=== PATIENT | male | born 1975 | race Caucasian/White ===

== ENCOUNTER 2020-06-27 18:41 | Emergency (ER) | payer OTHER, SELFPAY ==
[2020-06-27] VITALS (10 sets, daily range): BP systolic 120–168; BP diastolic 60–98; PULSE 83–90; RESP 14–18; TEMP 36.3–37.4; O2SAT 92–98; BMI 38.3
--- NOTE | 2020-06-27 19:31 | XRR_ITS ---
PROCEDURE INFORMATION: Exam: XR Chest, 1 View Exam date and time: 06/27/2020 7:50 PM Age: 44 years old Clinical indication: Cough and fever and shortness of breath; Prior surgery; Patient HX: Stents; Additional info: Chest pain; Fevers, cough, shortness of breath, aches TECHNIQUE: Imaging protocol: XR of the chest Views: 1 view. COMPARISON: CR Chest 1 [place] [id number] 02/28/2017 9:57 PM FINDINGS: Lungs: Unremarkable. No consolidation. Pleural space: Unremarkable. No pleural effusion. No pneumothorax. Heart/Mediastinum: Unremarkable. No cardiomegaly. Bones/joints: Unremarkable. XR/XR chest 1V portable [id number] IMPRESSION: No acute findings.
--- NOTE | 2020-06-27 19:33 | ECG_ITS ---
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 Measurements Intervals [place] Rate: 85 P: 34 [place]: 187 QRS: 19 QRSD: 113 T: 76 QT: 367 QTc: 438 Interpretive Statements SINUS RHYTHM POSSIBLE LEFT ATRIAL ENLARGEMENT [-0.1mV P WAVE IN V1/V2] SEPTAL MYOCARDIAL INFARCTION , OF INDETERMINATE AGE [40+ ms Q WAVE IN V1/V2] Compared to ECG 03/01/2017 04:55:59 No significant changes Electronically Signed On 06-28-2020 17:54:09 [employer]BILE HOME [employer] UTILITY WORKER by Cris Guevara M.D. [id number]
--- NOTE | 2020-06-27 19:46 | ED_ITS ---
HPI - Fever General: Chief Complaint: Fever Stated Complaint: low fever, cough, chest pain Time Seen by Provider: 06/27/20 19:25 History of Present Illness: HPI Narrative: The patient is a 44-year-old male who comes to the ER complaining of a couple days of low-grade fever, muscle aches, fatigue, productive cough. No known Covid exposure. He also has a severe history of cardiac disease with 21 stents placed. Also a couple strokes. He says his last stenting procedure was 4 years ago. He says over the past few days he has also had left-sided chest pressure and heaviness similar to his previous [place]. There is no pressure in the ER at this time. Also h/o diabetes MD elicited complaint: fever, malaise and weakness Pertinent past history: diabetes Associated symptoms: Reports chills, cough, headache(s), myalgias and short of breath; Deny abdominal pain, flank pain, chest pain, diarrhea, extremity pain or nasal congestion Review of Systems General: Reports: 10 or more systems reviewed and unremarkable except in HPI and below Const: Reports: fever(s), chills, body aches and fatigue Eyes: Denies: change in vision, blurry vision or eye redness ENMT: Denies: throat pain, swelling of lips/tongue, ear or mastoid pain or nasal congestion Card: Denies: chest pain Resp: Reports: dyspnea and productive cough GI: Denies: abdominal pain, diarrhea or GI cramping : Denies: flank pain, urinary frequency or urinary urgency Musc: Denies: neck pain, back pain, extremity pain, joint pain, joint redness, limited range of motion or muscle weakness Skin/Breast: Denies: rash, pruritus, erythema, skin pain or skin tenderness Neuro: Reports: headache(s) Psych: Denies: anxiety or depression Endo: Denies: polyuria All/Imm: Denies: urticaria, throat swelling or tongue swelling Physical Exam Const: COMMON NORMALS: no acute distress, average body habitus, patient oriented x3, no limitations, healthy appearing, alert and well nourished GENERAL APPEARANCE: cooperative, comfortable, well kempt and well developed ORIENTATION/CONSCIOUSNESS: Yes awake, Yes oriented to person, Yes oriented to place and Yes oriented to time HENMT: COMMON NORMALS: normocephalic, external ears normal and Normal external nose present HEAD & SCALP: normal to inspection and normocephalic NOSE: Normal external nose present EXTERNAL EAR: Yes external ears normal MOUTH: Normal oral and palatal mucosa present THROAT: posterior oropharynx normal Eye: COMMON NORMALS: Equal, round and reactive pupils present and EOMs intact bilaterally GENERAL EYE: appearance normal, both eyes and all related structures PUPIL: Yes Equal, round and reactive pupils present Neck/C-Spine: COMMON NORMALS: full ROM, no lymphadenopathy, no meningeal signs and no JVD GENERAL: Yes normal visual inspection Lymph: LYMPHATIC: no lymphadenopathy noted Chest: COMMONS NORMALS: normal inspection of the chest and normal palpation of entire chest wall Resp: COMMON NORMALS: normal respiratory effort, No retractions, No use of accessory muscles, clear to auscultation bilaterally and percussion normal EFFORT & INSPECTION: Yes able to speak in complete sentences AUSCULTATION: clear to auscultation bilaterally PERCUSSION: percussion normal Cardio: COMMON NORMALS: no JVD, regular rate, regular rhythm, S1 normal heart sound present, S2 normal heart sound present and Peripheral pulses 2+ throughout RATE: regular rate RHYTHM: regular rhythm HEART SOUNDS: S1 normal heart sound present and S2 normal heart sound present PERIPHERAL PULSES: Peripheral pulses 2+ throughout GI: COMMON NORMALS: Normal to inspection, nondistended, normoactive bowel sounds present, Soft to palpation, non-tender and no masses INSPECTION: Yes normal to inspection PALPATION: Yes Soft to palpation : COMMON NORMALS: Yes no CVA tenderness BLADDER/KIDNEY EXAM: Yes no CVA tenderness Back/Pelvis: COMMON NORMALS: no CVA tenderness, thoracic and lumbar spine normal to inspection, no thoracic nor lumbar tenderness and thoraco-lumbar ROM normal Extremity: COMMON NORMALS: normal to inspection, full ROM, capillary refill normal, no joint enlargement and no pedal edema GENERAL: Yes normal exam except as noted Neuro: COMMON NORMALS: patient oriented x3, CN's II-XII intact bilaterally, moves all extremities, no focal motor deficits, no sensory deficits noted and gait normal SENSORIUM/ORIENTATION: Yes alert, Yes oriented to person, Yes oriented to place and Yes oriented to time MENINGEAL SIGNS: Yes no meningeal signs Psych: COMMON NORMALS: mental status grossly normal, Normal thought process present, cooperative, normal affect and speech normal APPEARANCE: Yes well kempt ATTITUDE: Yes calm SPEECH: Yes normal speech THOUGHT PROCESS: Normal thought process present Skin: COMMON NORMALS: no rashes or lesions noted GENERAL SKIN EXAM: no rashes or lesions noted Course Vital Signs: Vital signs: Vital Signs Temperature 98.5 F 06/28/20 02:28 Pulse Rate 87 06/28/20 02:28 Respiratory Rate 15 06/28/20 02:28 Blood Pressure 147/84 06/28/20 02:28 Pulse Oximetry 95 06/28/20 02:28 MDM - Fever MDM Narrative: Medical decision making narrative: The patient came in complaining of Covid symptoms for the past couple days and swabbed positive in the ER. He also came in complaining of chest pain with coughing which is diffuse in his anterior chest wall and tender to palpation. Of note he does have 21 cardiac stents and has not had a cath for 4 years. His initial and 2- hour troponin are negative and will wait for the sixth to discharge him. His body mass index is above 35 and he has cardiac disease which qualifies him for a BAM infusion. He consented and will give it to him here while he is awaiting his 6-hour troponin. Lab Data: Labs: Lab Results 06/27/20 06/27/20 06/27/20 Range/Units 19:48 19:48 19:48 WBC 6.2 (4.0-10.0) 10^3/ uL RBC 5.21 (4.1-5.3) 10^6/u L Hgb 15.0 (11.7-16.6) g/dL Hct 44.1 (42.0-52.0) % MCV 84.6 (80-94) fL MCH 28.8 (28.0-34.0) pg MCHC 34.0 (30.0-36.0) g/dL RDW 11.5 L (12.1-15.1) % Plt Count 173 (130-400) 10^3/c mm MPV 10.6 H (7.4-10.4) fL Neut % (Auto) 50.6 % Lymph % (Auto) 29.4 % Brewster % (Auto) 18.7 % Eos % (Auto) 0.5 % Baso % (Auto) 0.5 % Neut # (Auto) 3.11 (1.8-7.7) 10^3/u L Lymph # (Auto) 1.8 (0.8-4.8) 10^3/u L Brewster # (Auto) 1.2 H (0.2-0.9) 10^3/u L Eos # (Auto) 0.0 (0.0-0.8) 10^3/u L Baso # (Auto) 0.0 (0.0-0.1) 10^3/u L Nucleated RBC % (a uto) 0 % Nucleated RBCs # 0.0 /100WBC D-Dimer 0.48 (0-0.59) ug/mIFE U Sodium 130 L (136-145) mmol/L Potassium 4.5 (3.5-5.1) mmol/L Chloride 91 L (98-107) mmol/L Carbon Dioxide 28 (22-29) mmol/L Anion Gap 15.5 (5-19) BUN 18 (6-20) mg/dL Creatinine 1.1 (0.7-1.2) mg/dL GFR Calculation 72.1 L (90-130) mL/min Glucose 378 H (65-115) mg/dL Calculated Osmolal ity 287 (285-295) mOsm/k g Lactate (0.5-2.2) mmol/L Calcium 9.5 (8.5-10.5) mg/dL Total Bilirubin 0.7 (0.15-1.2) mg/dL AST 74 H (0-40) U/L ALT 111 H (0-41) U/L Alkaline Phosphata se 73 (40-130) IU/L Troponin T Baselin e (0-15) ng/L Troponin T 120 Min [place] (0-15) ng/L Delta Troponin T (0-10) ABS# Troponin T Hi Sens 6Hr (0-15) ng/L Troponin T Hi Sens 6Hr Delta (0-12) ng/L NT-Pro-B Natriuret Pep 21 (0-125) pg/mL Total Protein 7.0 (6.6-8.7) g/dL Albumin 4.0 (3.5-5.2) g/dL Globulin 3.0 (1.3-4.6) g/dL Urine Color (Yellow) Urine Appearance (CLEAR) Urine pH (5-7) Ur Specific Gravit y (1.005-1.030) Urine Protein (Negative) Urine Glucose (UA) (Normal) Urine Ketones (Negative) Urine Blood (Negative) Urine Nitrate (Negative) Urine Bilirubin (Negative) Urine Urobilinogen (Negative) mg/dL Ur Leukocyte Ciara ase (Negative) Urine RBC (0-2) /hpf Urine WBC (0-5) /hpf Ur Squamous Epith Cells (0-5) /hpf Amorphous Sediment Urine Bacteria (NONE) /hpf Hepatitis A IgM Ab (Nonreactive) Hep Bs Antigen (Nonreactive) Hep B Core IgM Ab (Nonreactive) Hepatitis C Antibo dy (Nonreactive) Influenza Type A A g (Negative) Influenza Type B A g (Negative) SARS-CoV-2 Ag (Rap id) (Negative) 06/27/20 06/27/20 06/27/20 Range/Units 19:48 19:48 19:48 WBC (4.0-10.0) 10^3/ uL RBC (4.1-5.3) 10^6/u L Hgb (11.7-16.6) g/dL Hct (42.0-52.0) % MCV (80-94) fL MCH (28.0-34.0) pg MCHC (30.0-36.0) g/dL RDW (12.1-15.1) % Plt Count (130-400) 10^3/c mm MPV (7.4-10.4) fL Neut % (Auto) % Lymph % (Auto) % Brewster % (Auto) % Eos % (Auto) % Baso % (Auto) % Neut # (Auto) (1.8-7.7) 10^3/u L Lymph # (Auto) (0.8-4.8) 10^3/u L Brewster # (Auto) (0.2-0.9) 10^3/u L Eos # (Auto) (0.0-0.8) 10^3/u L Baso # (Auto) (0.0-0.1) 10^3/u L Nucleated RBC % (a uto) % Nucleated RBCs # /100WBC D-Dimer (0-0.59) ug/mIFE U Sodium (136-145) mmol/L Potassium (3.5-5.1) mmol/L Chloride (98-107) mmol/L Carbon Dioxide (22-29) mmol/L Anion Gap (5-19) BUN (6-20) mg/dL Creatinine (0.7-1.2) mg/dL GFR Calculation (90-130) mL/min Glucose (65-115) mg/dL Calculated Osmolal ity (285-295) mOsm/k g Lactate 1.8 (0.5-2.2) mmol/L Calcium (8.5-10.5) mg/dL Total Bilirubin (0.15-1.2) mg/dL AST (0-40) U/L ALT (0-41) U/L Alkaline Phosphata se (40-130) IU/L Troponin T Baselin e 24 H (0-15) ng/L Troponin T 120 Min [place] (0-15) ng/L Delta Troponin T (0-10) ABS# Troponin T Hi Sens 6Hr (0-15) ng/L Troponin T Hi Sens 6Hr Delta (0-12) ng/L NT-Pro-B Natriuret Pep (0-125) pg/mL Total Protein (6.6-8.7) g/dL Albumin (3.5-5.2) g/dL Globulin (1.3-4.6) g/dL Urine Color (Yellow) Urine Appearance (CLEAR) Urine pH (5-7) Ur Specific Gravit y (1.005-1.030) Urine Protein (Negative) Urine Glucose (UA) (Normal) Urine Ketones (Negative) Urine Blood (Negative) Urine Nitrate (Negative) Urine Bilirubin (Negative) Urine Urobilinogen (Negative) mg/dL Ur Leukocyte Ciara ase (Negative) Urine RBC (0-2) /hpf Urine WBC (0-5) /hpf Ur Squamous Epith Cells (0-5) /hpf Amorphous Sediment Urine Bacteria (NONE) /hpf Hepatitis A IgM Ab Non-reactive (Nonreactive) Hep Bs Antigen Non-reactive (Nonreactive) Hep B Core IgM Ab Non-reactive (Nonreactive) Hepatitis C Antibo dy Non-reactive (Nonreactive) Influenza Type A A g (Negative) Influenza Type B A g (Negative) SARS-CoV-2 Ag (Rap id) (Negative) 06/27/20 06/27/20 06/27/20 Range/Units 19:53 19:53 20:56 WBC (4.0-10.0) 10^3/ uL RBC (4.1-5.3) 10^6/u L Hgb (11.7-16.6) g/dL Hct (42.0-52.0) % MCV (80-94) fL MCH (28.0-34.0) pg MCHC (30.0-36.0) g/dL RDW (12.1-15.1) % Plt Count (130-400) 10^3/c mm MPV (7.4-10.4) fL Neut % (Auto) % Lymph % (Auto) % Brewster % (Auto) % Eos % (Auto) % Baso % (Auto) % Neut # (Auto) (1.8-7.7) 10^3/u L Lymph # (Auto) (0.8-4.8) 10^3/u L Brewster # (Auto) (0.2-0.9) 10^3/u L Eos # (Auto) (0.0-0.8) 10^3/u L Baso # (Auto) (0.0-0.1) 10^3/u L Nucleated RBC % (a uto) % Nucleated RBCs # /100WBC D-Dimer (0-0.59) ug/mIFE U Sodium (136-145) mmol/L Potassium (3.5-5.1) mmol/L Chloride (98-107) mmol/L Carbon Dioxide (22-29) mmol/L Anion Gap (5-19) BUN (6-20) mg/dL Creatinine (0.7-1.2) mg/dL GFR Calculation (90-130) mL/min Glucose (65-115) mg/dL Calculated Osmolal ity (285-295) mOsm/k g Lactate (0.5-2.2) mmol/L Calcium (8.5-10.5) mg/dL Total Bilirubin (0.15-1.2) mg/dL AST (0-40) U/L ALT (0-41) U/L Alkaline Phosphata se (40-130) IU/L Troponin T Baselin e (0-15) ng/L Troponin T 120 Min [place] (0-15) ng/L Delta Troponin T (0-10) ABS# Troponin T Hi Sens 6Hr (0-15) ng/L Troponin T Hi Sens 6Hr Delta (0-12) ng/L NT-Pro-B Natriuret Pep (0-125) pg/mL Total Protein (6.6-8.7) g/dL Albumin (3.5-5.2) g/dL Globulin (1.3-4.6) g/dL Urine Color Yellow (Yellow) Urine Appearance Clear (CLEAR) Urine pH 5 (5-7) Ur Specific Gravit y 1.015 (1.005-1.030) Urine Protein Neg (Negative) Urine Glucose (UA) 4+ H (Normal) Urine Ketones Negative (Negative) Urine Blood 2+ H (Negative) Urine Nitrate Negative (Negative) Urine Bilirubin Neg (Negative) Urine Urobilinogen Norm (Negative) mg/dL Ur Leukocyte Ciara ase Negative (Negative) Urine RBC 0-4 H (0-2) /hpf Urine WBC 0-4 H (0-5) /hpf Ur Squamous Epith Cells 0-4 H (0-5) /hpf Amorphous Sediment Not Reportable Urine Bacteria Trace (NONE) /hpf Hepatitis A IgM Ab (Nonreactive) Hep Bs Antigen (Nonreactive) Hep B Core IgM Ab (Nonreactive) Hepatitis C Antibo dy (Nonreactive) Influenza Type A A g Negative (Negative) Influenza Type B A g Negative (Negative) SARS-CoV-2 Ag (Rap id) Positive H (Negative) 06/27/20 06/28/20 Range/Units 21:40 01:22 WBC (4.0-10.0) 10^3/ uL RBC (4.1-5.3) 10^6/u L Hgb (11.7-16.6) g/dL Hct (42.0-52.0) % MCV (80-94) fL MCH (28.0-34.0) pg MCHC (30.0-36.0) g/dL RDW (12.1-15.1) % Plt Count (130-400) 10^3/c mm MPV (7.4-10.4) fL Neut % (Auto) % Lymph % (Auto) % Brewster % (Auto) % Eos % (Auto) % Baso % (Auto) % Neut # (Auto) (1.8-7.7) 10^3/u L Lymph # (Auto) (0.8-4.8) 10^3/u L Brewster # (Auto) (0.2-0.9) 10^3/u L Eos # (Auto) (0.0-0.8) 10^3/u L Baso # (Auto) (0.0-0.1) 10^3/u L Nucleated RBC % (a uto) % Nucleated RBCs # /100WBC D-Dimer (0-0.59) ug/mIFE U Sodium (136-145) mmol/L Potassium (3.5-5.1) mmol/L Chloride (98-107) mmol/L Carbon Dioxide (22-29) mmol/L Anion Gap (5-19) BUN (6-20) mg/dL Creatinine (0.7-1.2) mg/dL GFR Calculation (90-130) mL/min Glucose (65-115) mg/dL Calculated Osmolal ity (285-295) mOsm/k g Lactate (0.5-2.2) mmol/L Calcium (8.5-10.5) mg/dL Total Bilirubin (0.15-1.2) mg/dL AST (0-40) U/L ALT (0-41) U/L Alkaline Phosphata se (40-130) IU/L Troponin T Baselin e (0-15) ng/L Troponin T 120 Min [place] 21.00 H (0-15) ng/L Delta Troponin T -3.00 L (0-10) ABS# Troponin T Hi Sens 6Hr 17.68 H (0-15) ng/L Troponin T Hi Sens 6Hr Delta -6.32 L (0-12) ng/L NT-Pro-B Natriuret Pep (0-125) pg/mL Total Protein (6.6-8.7) g/dL Albumin (3.5-5.2) g/dL Globulin (1.3-4.6) g/dL Urine Color (Yellow) Urine Appearance (CLEAR) Urine pH (5-7) Ur Specific Gravit y (1.005-1.030) Urine Protein (Negative) Urine Glucose (UA) (Normal) Urine Ketones (Negative) Urine Blood (Negative) Urine Nitrate (Negative) Urine Bilirubin (Negative) Urine Urobilinogen (Negative) mg/dL Ur Leukocyte Ciara ase (Negative) Urine RBC (0-2) /hpf Urine WBC (0-5) /hpf Ur Squamous Epith Cells (0-5) /hpf Amorphous Sediment Urine Bacteria (NONE) /hpf Hepatitis A IgM Ab (Nonreactive) Hep Bs Antigen (Nonreactive) Hep B Core IgM Ab (Nonreactive) Hepatitis C Antibo dy (Nonreactive) Influenza Type A A g (Negative) Influenza Type B A g (Negative) SARS-CoV-2 Ag (Rap id) (Negative) Discharge Plan Discharge Patient Disposition: Home Clinical Impression: COVID-19 Condition: Stable Prescriptions: New Medrol (Leonard) 4 mg tablets,dose pack See Rx Instructions .ROUTE .COMPLEX Qty: 21 RF: 0 azithromycin 250 mg tablet 250 mg PO DAILY 4 Days Qty: 4 RF: 0 No Action citalopram 40 mg Tablet 40 mg PO BID@1100,2300 RF: 0 lisinopril 20 mg Tablet 40 mg PO DAILY@1100 RF: 0 glipizide 10 mg Tablet 10 mg PO TID@1100,1700,2300 RF: 0 amlodipine 5 mg Tablet 2.5 mg PO BID@1100,2300 RF: 0 Aspir-81 81 mg Tablet,Delayed Release (Dr/Ec) 81 mg PO DAILY@1100 RF: 0 metformin 1,000 mg Tablet 1,000 mg PO BID@1100,2300 RF: 0 metoprolol tartrate 50 mg Tablet 50 mg PO BID@1100,2300 RF: 0 hydrochlorothiazide 25 mg Tablet 25 mg PO DAILY@1100 RF: 0 zolpidem 10 mg Tablet 10 mg PO BEDTIME@2300 RF: 0 Discharge Orders: Discharge ED (Routine); Ordered 06/27/20 Ordered By: Epifanio Seymour Discharge Diet: Advance as tolerated Discharge Activity: Resume usual activity Patient Instructions: Upper Respiratory Infection (ED) Activity Restrictions/Additional Instructions: You have swabbed positive for COVID-19. Please take the steroids and antibiotics at home as directed and follow-up with your primary care physician in a couple days to monitor improvement. Return to the ER with any worsening symptoms or w orsening chest pain. I have placed a case management referral to get you a follow-up with the vegetable vendor as you are likely in need of a stress echocardiogram. Please follow-up with them next week and return to the ER with any worsening chest pain or other concerning symptoms Coding Level of Care Code ED Chemical Plant Operator Supervisor for Janell Fwd Exam Comprehensive
[2020-06-27 20:08] LABS: Basophils % 0.5 %; Eosinophils % 0.5 %; Hematocrit 44.1 % (42.0-52.0); Lymphocytes # 1.8 10^3/uL (0.8-4.8); Lymphocytes % 29.4 %; Mean Corpuscular Hemoglobin 28.8 pg (28.0-34.0); Mean Corpuscular Volume 84.6 fL (80-94); Mean Platelet Volume 10.6 fL (7.4-10.4); Monocytes # 1.2 10^3/uL (0.2-0.9); Monocytes % 18.7 %; Neutrophils # 3.11 10^3/uL (1.8-7.7); Neutrophils % 50.6 %; Nucleated Red Blood Cells % 0 %; Platelet Count 173 10^3/cmm (130-400); Red Blood Count 5.21 10^6/uL (4.1-5.3); Red Cell Distribution Width 11.5 % (12.1-15.1); White Blood Count 6.2 10^3/uL (4.0-10.0)
[2020-06-27 20:20] LABS: Lactate (Lactic Acid level) 1.8 mmol/L (0.5-2.2)
[2020-06-27 20:23] LABS: Troponin(5th) Baseline 24 ng/L (0-15)
[2020-06-27 20:24] LABS: D Dimer 0.48 ug/mIFEU (0-0.59)
[2020-06-27 20:30] LABS: Influenza A by IFA Negative (Negative); Influenza B by IFA Negative (Negative); SARS Covid-2 Antigen Positive (Negative)
[2020-06-27 20:31] LABS: Alanine Aminotransferase 111 U/L (0-41); Alkaline Phosphatase 73 IU/L (40-130); Anion Gap 15.5 (5-19); Aspartate Amino Transferase 74 U/L (0-40); Blood Urea Nitrogen 18 mg/dL (6-20); Calcium 9.5 mg/dL (8.5-10.5); Carbon Dioxide 28 mmol/L (22-29); Chloride 91 mmol/L (98-107); Creatinine Clr Calc Pharmacy 112.8418; Glomerular Filtration Rate 72.1 mL/min (90-130); Glucose 378 mg/dL (65-115); NT Pro B Type Natriuretic Pept 21 pg/mL (0-125); Osmolality Calculated 287 mOsm/kg (285-295); Potassium 4.5 mmol/L (3.5-5.1); Sodium 130 mmol/L (136-145); Total Bilirubin 0.7 mg/dL (0.15-1.2)
[2020-06-27 21:24] LABS: Add Urine Microscopic? YES; Bilirubin Urine Neg (Negative); Blood Urine 2+ (Negative); Glucose Urine UA 4+ (Normal); Ketones Urine Negative (Negative); Leukocyte Esterase Urine Negative (Negative); Nitrate Urine Negative (Negative); Protein Urine Neg (Negative); Specific Gravity, Urine 1.015 (1.005-1.030); Urine Appearance Clear (CLEAR); Urine Color Yellow (Yellow); Urobilinogen Urine Norm (Negative); pH Urine 5 (5-7)
[2020-06-27 21:25] LABS: Add Urine Culture? No; Bacteria Urine TRACE /hpf; RBC Urine 0-4 /hpf (0-2); Squamous Epithelial Cell Urine 0-4 /hpf (0-5); WBC Urine 0-4 /hpf (0-5)
--- NOTE | 2020-06-27 21:33 | ECG_ITS ---
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 Measurements Intervals [place] Rate: 85 P: 20 CT: 194 QRS: -16 QRSD: 112 T: 72 QT: 356 QTc: 424 Interpretive Statements SINUS RHYTHM POSSIBLE LEFT ATRIAL ENLARGEMENT [-0.1mV P WAVE IN V1/V2] ANTEROSEPTAL MYOCARDIAL INFARCTION , OF INDETERMINATE AGE [40+ ms Q WAVE IN V1-V4] INTERPRETATION BASED ON A DEFAULT AGE OF 40 YEARS Compared to ECG 06/27/2020 19:34:03 No significant changes Electronically Signed On 06-28-2020 18:03:42 MOHEL by Cris Guevara M.D. [id number] f
[2020-06-27 22:06] LABS: Hepatitis A Antibody IgM Non-Reactive (Nonreactive); Hepatitis B Core IgM Non-Reactive (Nonreactive); Hepatitis B Surface Antigen Non-Reactive (Nonreactive); Hepatitis C Virus Antibody Non-Reactive (Nonreactive)
[2020-06-27] MEDS: dexamethasone 4 mg/mL INJ 10 MG IVP (23:34)
[2020-06-27] MEDS: azithromycin 250 mg Tablet 500 MG PO (23:34)
[2020-06-28] VITALS: BP 143/87; PULSE 87; RESP 19; O2SAT 92
[2020-06-28 01:00] VITALS: BP 129/84; PULSE 88; RESP 16; O2SAT 93
[2020-06-28 01:52] LABS: Troponin 5 6HR 17.68 ng/L (0-15)
[2020-06-28 02:07] LABS: Troponin 5 6HR Delta -6.32 ng/L (0-12)
[2020-06-28 02:28] VITALS: BP 147/84; PULSE 87; RESP 15; TEMP 36.9; O2SAT 95
--- NOTE | 2020-06-30 12:02 | DCPLANNER ---
Addendum entered by Roxi Grgeg 07/08/20 08:13: box office manager called patient on 07.01.20 and 07.08.20 at phone number [phone], unable to reach patient, left voicemail for patient both time. box office manager will send letter to patient regarding appointment information. Original Note: box office manager had message to schedule a follow up appointment for patient with heart care. box office manager called [facility], spoke with Carmel a follow up appointment was scheduled for , August 07, 2020 at 2:[address] Goldstein. box office manager called [phone], unable to speak with patient at this time, a voicemail was left for patient to return dependency case manager phone call.
--- NOTE | 2020-09-10 11:41 | DCPLANNER ---
Patient had a follow up appointment scheduled for 08.07.[address] Goldstein at [facility] - patient did not attend appointment.
== END 2020-06-28 02:28 | disposition home or self-care (01) ==
PROVIDERS: Emergency Provider Family Medicine
DX: U07.1 COVID-19 (principal); Z79.82 Long term (current) use of aspirin
CPT/HCPCS: 12345; 71045; 80053; 80074; 81001; 83605; 83880; 84484; 85025; 85378; 87426; 87804; 93005; 96365; 96375; 99283; 99284; J1100; J7050; Q0144

== ENCOUNTER → 2021-02-09 17:14 | Outpatient (BNVA) | payer OTHER, SELFPAY | PROVIDERS: PCP Family Medicine; Visit Provider Family Medicine | DX: I10 Essential (primary) hypertension (principal); E11.8 Type 2 diabetes mellitus with unspecified complications; E11.65 Type 2 diabetes mellitus with hyperglycemia; E66.9 Obesity, unspecified; R06.83 Snoring; I25.10 Atherosclerotic heart disease of native coronary artery without angina pectoris | CPT/HCPCS: 80053; 80061; 83036; 83721; 84443; 85025 ==

== ENCOUNTER 2021-02-17 20:00 | Outpatient (CLI) | payer OTHER, SELFPAY | END 2021-02-17 20:01 | disposition home or self-care (01) | LOC: SLEEP 02-18 09:03 | PROVIDERS: PCP Family Medicine; Visit Provider Family Medicine | DX: G47.30 Sleep apnea, unspecified (principal); I10 Essential (primary) hypertension; E11.65 Type 2 diabetes mellitus with hyperglycemia; I25.10 Atherosclerotic heart disease of native coronary artery without angina pectoris; R06.83 Snoring; E66.9 Obesity, unspecified | CPT/HCPCS: 95810 ==

== ENCOUNTER → 2021-08-04 15:21 | Outpatient (BNVA) | payer OTHER, SELFPAY | PROVIDERS: PCP Family Medicine; Visit Provider Family Medicine | DX: J30.9 Allergic rhinitis, unspecified (principal); E11.65 Type 2 diabetes mellitus with hyperglycemia; E11.8 Type 2 diabetes mellitus with unspecified complications; E78.2 Mixed hyperlipidemia; I10 Essential (primary) hypertension; I25.10 Atherosclerotic heart disease of native coronary artery without angina pectoris; R53.83 Other fatigue | CPT/HCPCS: 80048; 80061; 83036; 83721; 84443 ==

== ENCOUNTER → 2021-10-28 14:57 | Outpatient (BNVA) | payer OTHER, SELFPAY | PROVIDERS: PCP Family Medicine; Visit Provider Family Medicine | DX: E11.621 Type 2 diabetes mellitus with foot ulcer (principal); L97.509 Non-pressure chronic ulcer of other part of unspecified foot with unspecified severity; M86.9 Osteomyelitis, unspecified; E11.8 Type 2 diabetes mellitus with unspecified complications; E11.65 Type 2 diabetes mellitus with hyperglycemia | CPT/HCPCS: 73620; 80053; 83036; 85025; 86140; 87070; 87075; 87077; 87184; 87205 ==

== ENCOUNTER 2021-11-05 14:11 | Outpatient (CLI) | payer OTHER, SELFPAY | END 2021-11-05 14:12 | disposition home or self-care (01) | LOC: SPT 14:27 | PROVIDERS: PCP Family Medicine; Visit Provider Nurse Practitioner Family | DX: Z46.89 Encounter for fitting and adjustment of other specified devices (principal); R26.89 Other abnormalities of gait and mobility | CPT/HCPCS: 97760 ==

== ENCOUNTER 2021-11-19 13:51 | Outpatient (CLI) | payer OTHER, SELFPAY ==
[2021-11-19 15:12] LABS: Basophils # 0.1 10^3/uL (0.0-0.1); Basophils % 0.7 %; Eosinophils # 0.3 10^3/uL (0.0-0.8); Eosinophils % 2.6 %; Hematocrit 39.7 % (42.0-52.0); Hemoglobin 13.6 g/dL (11.7-16.6); Lymphocytes # 3.7 10^3/uL (0.8-4.8); Lymphocytes % 38.3 %; Mean Corpuscular HGB Conc 34.3 g/dL (30.0-36.0); Mean Corpuscular Hemoglobin 28.8 pg (28.0-34.0); Mean Corpuscular Volume 83.9 fl (80-94); Mean Platelet Volume 11.4 fL (7.4-10.4); Monocytes % 10.3 %; Neutrophils # 4.59 10^3/uL (1.8-7.7); Neutrophils % 47.6 %; Nucleated Red Blood Cells % 0.2 %; Platelet Count 121 10^3/cmm (130-400); Red Blood Count 4.73 10^6/uL (4.1-5.3); Red Cell Distribution Width 11.9 % (12.1-15.1); White Blood Count 9.6 10^3/uL (4.0-10.0)
[2021-11-19 15:47] LABS: Alanine Aminotransferase 33 U/L (0-41); Albumin Level 4.4 g/dL (3.5-5.2); Alkaline Phosphatase 70 IU/L (40-130); Anion Gap 17.1 (5-19); Aspartate Amino Transferase 22 U/L (0-40); Blood Urea Nitrogen 22 mg/dL (6-20); Calcium 9.6 mg/dL (8.5-10.5); Carbon Dioxide 26 mmol/L (22-29); Chloride 99 mmol/L (98-107); Globulin 3.2 g/dL (1.3-4.6); Glomerular Filtration Rate 90.1 mL/min (90-130); Glucose 187 mg/dL (65-115); Osmolality Calculated 294 mOsm/kg (285-295); Potassium 4.1 mmol/L (3.5-5.1); Sodium 138 mmol/L (136-145); Total Bilirubin 0.6 mg/dL (0.15-1.2); Total Protein 7.6 g/dL (6.6-8.7)
== END 2021-11-19 13:52 | disposition home or self-care (01) ==
LOC: LAB 13:53
PROVIDERS: PCP Family Medicine; Visit Provider Nurse Practitioner Family
DX: E11.621 Type 2 diabetes mellitus with foot ulcer (principal); L97.509 Non-pressure chronic ulcer of other part of unspecified foot with unspecified severity; M86.9 Osteomyelitis, unspecified
CPT/HCPCS: 80053; 85025

== ENCOUNTER 2021-12-04 13:11 | Outpatient (CLI) | payer OTHER, SELFPAY ==
[2021-12-04 13:37] LABS: Basophils # 0.1 10^3/uL (0.0-0.1); Basophils % 0.9 %; Eosinophils # 0.3 10^3/uL (0.0-0.8); Eosinophils % 3.7 %; Hematocrit 43.6 % (42.0-52.0); Hemoglobin 14.8 g/dL (11.7-16.6); Lymphocytes # 2.7 10^3/uL (0.8-4.8); Lymphocytes % 38.1 %; Mean Corpuscular HGB Conc 33.9 g/dL (30.0-36.0); Mean Corpuscular Hemoglobin 28.8 pg (28.0-34.0); Mean Platelet Volume 10.2 fL (7.4-10.4); Monocytes # 0.7 10^3/uL (0.2-0.9); Monocytes % 10.4 %; Neutrophils # 3.26 10^3/uL (1.8-7.7); Neutrophils % 46.5 %; Nucleated Red Blood Cells % 0 %; Platelet Count 255 10^3/cmm (130-400); Red Blood Count 5.13 10^6/uL (4.1-5.3); Red Cell Distribution Width 12.9 % (12.1-15.1)
[2021-12-04 13:43] LABS: Erythrocyte Sedimentation Rate 2 mm/hr (0-10)
[2021-12-04 14:05] LABS: Alanine Aminotransferase 34 U/L (0-41); Albumin Level 4.4 g/dL (3.5-5.2); Alkaline Phosphatase 71 IU/L (40-130); Anion Gap 14.5 (5-19); Aspartate Amino Transferase 24 U/L (0-40); Blood Urea Nitrogen 13 mg/dL (6-20); Calcium 9.9 mg/dL (8.5-10.5); Carbon Dioxide 30 mmol/L (22-29); Chloride 99 mmol/L (98-107); Globulin 3.2 g/dL (1.3-4.6); Glomerular Filtration Rate 103.2 mL/min (90-130); Glucose 268 mg/dL (65-115); Osmolality Calculated 298 mOsm/kg (285-295); Potassium 4.5 mmol/L (3.5-5.1); Sodium 139 mmol/L (136-145); Total Bilirubin 0.6 mg/dL (0.15-1.2); Total Protein 7.6 g/dL (6.6-8.7)
== END 2021-12-04 13:12 | disposition home or self-care (01) ==
LOC: LAB 13:12
PROVIDERS: PCP Family Medicine; Visit Provider Nurse Practitioner Family
DX: E11.621 Type 2 diabetes mellitus with foot ulcer (principal); L97.509 Non-pressure chronic ulcer of other part of unspecified foot with unspecified severity
CPT/HCPCS: 36415; 80053; 85025; 85651

== ENCOUNTER 2021-12-10 11:23 | Outpatient (CLI) | payer OTHER, SELFPAY ==
--- NOTE | 2021-12-10 11:35 | XR_ITS ---
WS: [id number] Exam: XR chest 2V* [id number] Date/Time of Exam: 12/10/2021 11:35 AM Reason For Exam: Z13.83 - Encounter for screening for respiratory disorder... Comparison 06/27/2020. The lungs are fully expanded and clear. Cardiomediastinal silhouette is unremarkable. No pleural effu sions. Bony elements are intact. Signs of coronary artery stenting. XR/XR chest 2V* [id number] IMPRESSION: 1. No acute cardiopulmonary finding. No change.
[2021-12-10 12:57] LABS: C Reactive Protein 4.9 mg/L (0.0-4.9); Prealbumin 16.8 mg/dL (20-40)
--- NOTE | 2021-12-10 13:35 | ECG_ITS ---
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 Measurements Intervals [place] Rate: 77 P: 24 CA: 168 QRS: 1 QRSD: 117 T: 63 QT: 383 QTc: 435 Interpretive Statements SINUS RHYTHM MODERATE INTRAVENTRICULAR CONDUCTION DELAY [105+ ms QRS DURATION, 80+ ms Q/S IN V1/V2, NO Q AND 60+ ms R IN I/aVL/V5/V6] NONSPECIFIC ST & T-WAVE ABNORMALITY Compared to ECG 06/27/2020 21:41:37 Intraventricular conduction delay now present T-wave abnormality now present Myocardial infarct finding no longer present Electronically Signed On 12-10-2021 22:32:20 CDT by Dale Grant M.D. [id number] f
== END 2021-12-10 11:24 | disposition home or self-care (01) ==
PROVIDERS: PCP Family Medicine; Visit Provider Nurse Practitioner Family
DX: M86.9 Osteomyelitis, unspecified (principal); Z13.83 Encounter for screening for respiratory disorder NEC
CPT/HCPCS: 36415; 71046; 84134; 86140; 93005

== ENCOUNTER 2021-12-15 20:00 | Outpatient (CLI) | payer OTHER, SELFPAY | END 2021-12-15 20:01 | disposition home or self-care (01) | LOC: SLEEP 12-16 08:16 | PROVIDERS: PCP Family Medicine; Visit Provider Family Medicine | DX: G47.33 Obstructive sleep apnea (adult) (pediatric) (principal) | CPT/HCPCS: 95811 ==

== ENCOUNTER 2022-01-11 20:18 | Emergency (ER) | payer OTHER, SELFPAY ==
[2022-01-11 20:29] VITALS: BP 140/90; PULSE 89; RESP 17; TEMP 37.1; O2SAT 94; BMI 39.7
--- NOTE | 2022-01-11 21:29 | XRR_ITS ---
PROCEDURE INFORMATION: Exam: XR Right Foot Exam date and time: 01/11/2022 9:44 PM Age: 46 years old Clinical indication: Condition or disease; Other: Foot ulcer TECHNIQUE: Imaging protocol: Radiologic exam of the Right foot. Views: 3 or more views. COMPARISON: No relevant prior studies available. FINDINGS: Bones/joints: There is an ununited fracture of the proximal 5th metatarsal. Periosteal reaction surrounds the fracture. No additional fractures are identified. No acute joint abnormality demonstrated. Small plantar calcaneal spur noted. Soft tissues: No radiopaque foreign body demonstrated in the soft tissues. Vasculature: There are atherosclerotic calcifications demonstrated. XR/XR foot RT min 3V* [id number] IMPRESSION: 1. There is an ununited fracture of the proximal 5th metatarsal. No additional fractures. 2. No radiographic findings of osteomyelitis.
[2022-01-11 21:33] VITALS: BP 135/79; PULSE 89; RESP 20; O2SAT 97
--- NOTE | 2022-01-11 21:35 | ED_ITS ---
HPI - Wound/Laceration General: Chief Complaint: Wound/Laceration Stated Complaint: Diabetic Ulcer RT foot Time Seen by Provider: 01/11/22 21:26 Source: patient Mode of arrival: ambulatory Limitations: no limitations History of Present Illness: 46-year-old male he has a history of a chronic right foot ulcer that is a diabetic foot ulcer. He has been receiving treatment from wound care he states he just got out of a cast and has had some increased pain along with low-grade fevers and swelling to the foot. States pain is sharp in nature rates it a 6 out of 10 denies any worsening improving factors. Denies any radiation of his pain denies any injuries. Associated symptoms: Reports fever(s); Denies nausea or vomiting Review of Systems Const: Reports: fever(s) Eyes: Denies: blurry vision or eye discomfort ENMT: Denies: throat pain or dental pain Card: Denies: chest pain Resp: Denies: dyspnea GI: Denies: abdominal pain, nausea, vomiting or diarrhea : Denies: dysuria Musc: Reports: extremity pain Skin/Breast: Denies: rash Neuro: Denies: headache(s) Psych: Denies: depression Jairo/Lymph: Denies: easy bruising All/Imm: Denies: urticaria PFSH ED PFSH: Medical History Essential hypertension Family History Father Diabetes Stroke Mother Hypertension Chronic kidney disease (CKD) Social History Smoking and tobacco status: never smoked Alcohol intake: never Physical Exam Const: COMMON NORMALS: no acute distress, patient oriented x3 and healthy appe aring HENMT: COMMON NORMALS: normocephalic and atraumatic HEAD & SCALP: normocephalic and atraumatic Eye: COMMON NORMALS: conjunctivae normal CONJUNCTIVA: Yes conjunctivae normal Neck/C-Spine: COMMON NORMALS: supple Chest: COMMONS NORMALS: normal inspection of the chest Resp: COMMON NORMALS: normal respiratory effort Cardio: COMMON NORMALS: regular rate, regular rhythm and No murmurs present (Cardio) RATE: regular rate RHYTHM: regular rhythm GI: INSPECTION: Yes normal to inspection Extremity: COMMON NORMALS: full ROM Neuro: COMMON NORMALS: patient oriented x3, moves all extremities and no focal motor deficits Psych: COMMON NORMALS: mental status grossly normal, Normal thought process present and cooperative THOUGHT PROCESS: Normal thought process present Skin: NARRATIVE SKIN EXAM: Small roughly quarter sized ulcer to the bottom of his right foot no necrosis mild erythema noted Course Vital Signs: Vital signs: Vital Signs Temperature 98.7 F 01/11/22 20:29 Pulse Rate 75 01/11/22 22:30 Respiratory Rate 20 H 01/11/22 21:33 Blood Pressure 121/68 01/11/22 22:30 Pulse Oximetry 97 01/11/22 22:30 MDM - Wound/Laceration Medical Decision Making Patient presents here with a diabetic foot ulcer with mild cellulitis he has no signs of sepsis patient given IV vancomycin here will start on Bactrim he is to follow back up with wound care this week and return if worsening he understands agrees to plan. Lab Data : 01/11/22 21:41 Radiology Impressions Foot X-Ray 01/11/22 21:29 IMPRESSION: 1. There is an ununited fracture of the proximal 5th metatarsal. No additional fractures. 2. No radiographic findings of osteomyelitis. Laboratory Results WBC 16.5 10^3/uL (4.0-10.0) H 01/11/22 21:41 RBC 4.83 10^6/uL (4.1-5.3) 01/11/22 21:41 Hgb 13.7 g/dL (11.7-16.6) 01/11/22 21:41 Hct 41.5 % (42.0-52.0) L 01/11/22 21:41 MCV 85.9 fl (80-94) 01/11/22 21:41 MCH 28.4 pg (28.0-34.0) 01/11/22 21:41 MCHC 33.0 g/dL (30.0-36.0) 01/11/22 21:41 RDW 12.2 % (12.1-15.1) 01/11/22 21:41 Plt Count 265 10^3/cmm (130-400) 01/11/22 21:41 MPV 10.2 fL (7.4-10.4) 01/11/22 21:41 Neut % (Auto) 69.6 % 01/11/22 21:41 Lymph % (Auto) 20.8 % 01/11/22 21:41 [place] % (Auto) 8.4 % 01/11/22 21:41 Eos % (Auto) 0.4 % 01/11/22 21:41 Baso % (Auto) 0.5 % 01/11/22 21:41 Neut # (Auto) 11.49 10^3/uL (1.8-7.7) H 01/11/22 21:41 Lymph # (Auto) 3.4 10^3/uL (0.8-4.8) 01/11/22 21:41 [place] # (Auto) 1.4 10^3/uL (0.2-0.9) H 01/11/22 21:41 Eos # (Auto) 0.1 10^3/uL (0.0-0.8) 01/11/22 21:41 Baso # (Auto) 0.1 10^3/uL (0.0-0.1) 01/11/22 21:41 Nucleated RBC % (auto) 0 % 01/11/22 21:41 Nucleated RBCs # 0.0 /100WBC 01/11/22 21:41 Discharge Plan Discharge Patient Disposition: Home Clinical Impression: Diabetic foot ulcer Condition: Stable Prescriptions: New Bactrim DS 800-160 mg tablet 1 tab PO BID 10 Days Qty: 20 0RF No Action citalopram 40 mg tablet 40 mg PO DAILY 0RF metformin 1,000 mg tablet 1,000 mg PO ONCE 0RF metoprolol tartrate 50 mg tablet 50 mg PO DAILY 0RF icosapent ethyl [Vascepa] 1 gram capsule 2 g PO BID Qty: 360 3RF Rx Instructions: Take two capsules by mouth twice a day. ciprofloxacin HCl 500 mg tablet 500 mg PO Q12H Qty: 10 0RF insulin aspart U-100 [Novolog Flexpen U-100 Insulin] 100 unit/mL (3 mL) insulin pen See Rx Instructions .ROUTE .COMPLEX Qty: 15 5RF Rx Instructions: 2 units:-150-200, 4u:-200-250, 6u:-250-300, 8u:350-400, 10u: >400. amlodipine 5 mg tablet 5 mg PO DAILY Qty: 90 1RF atorvastatin 80 mg tablet 80 mg PO DAILY Qty: 90 1RF (DME) diabetic supplies, miscellan. [facility] See Rx Instructions .Route Qty: 25 2RF Rx Instructions: As directed hydrochlorothiazide 25 mg tablet 25 mg PO DAILY@1100 Qty: 90 1RF lisinopril 20 mg tablet 40 mg PO DAILY@1100 Qty: 90 1RF miscellaneous medical supply Counts [facility] 1 ea miscellaneous .COMPLEX Qty: 1 0RF Rx Instructions: Dexcom g6 Tobacco Packing Machine Operator Dispense 1/0 refills. Dexcom G6 Transmitter: 1/3 refills. Dexcom G6 Sensors Dispense 1 /12 refills. ciprofloxacin HCl 500 mg tablet 500 mg PO BID Qty: 42 0RF fenofibrate 160 mg tablet 160 mg PO DAILY Qty: 90 3RF Rx Instructions: Take one tablet by mouth daily. (DME) FreeStyle Xochilt [address] [facility] See Rx Instructions .Route Qty: 1 0RF Rx Instructions: Check BS 4-6 times a day. (DME) FreeStyle Xochilt 2 Sensor Kit See Rx Instructions .Route Qty: 8 3RF Rx Instructions: Change every 14 days. insulin detemir U-100 100 unit/mL (3 mL) insulin pen 60 unit SUBCUT DAILY 30 Days Qty: 18 0RF Aspir-81 81 mg Tablet,Delayed Release (Dr/Ec) 81 mg PO DAILY@1100 0RF Discharge Orders: Discharge ED (Routine); Ordered 01/11/22 Ordered By: Marisabel Rodriguez Referrals: Jaun Chandler, [Primary Care Provider] - Discharge Diet: Advance as tolerated Discharge Activity: Resume usual activity Patient Instructions: Diabetic Foot Ulcers (ED) Coding Level of Care Code ED Speech Language Pathologist Prn for Chg Fwd Exam Comprehensive
[2022-01-11] MEDS: vancomycin 1,000 MG in sodium chloride 0.9% 250 ML 250 MG IV (21:44)
[2022-01-11] MEDS: ondansetron 2 mg/ML SDV 2 mL 4 MG IVP (21:44)
[2022-01-11] MEDS: morphine 4 mg/mL SDV 1 mL IVP (21:44)
[2022-01-11 21:46] LABS: Basophils # 0.1 10^3/uL (0.0-0.1); Basophils % 0.5 %; Eosinophils # 0.1 10^3/uL (0.0-0.8); Eosinophils % 0.4 %; Hematocrit 41.5 % (42.0-52.0); Hemoglobin 13.7 g/dL (11.7-16.6); Lymphocytes # 3.4 10^3/uL (0.8-4.8); Lymphocytes % 20.8 %; Mean Corpuscular Hemoglobin 28.4 pg (28.0-34.0); Mean Corpuscular Volume 85.9 fl (80-94); Mean Platelet Volume 10.2 fL (7.4-10.4); Monocytes # 1.4 10^3/uL (0.2-0.9); Monocytes % 8.4 %; Neutrophils # 11.49 10^3/uL (1.8-7.7); Neutrophils % 69.6 %; Nucleated Red Blood Cells % 0 %; Platelet Count 265 10^3/cmm (130-400); Red Blood Count 4.83 10^6/uL (4.1-5.3); Red Cell Distribution Width 12.2 % (12.1-15.1); White Blood Count 16.5 10^3/uL (4.0-10.0)
[2022-01-11 22:30] VITALS: BP 121/68; PULSE 75; O2SAT 97
[2022-01-11 23:09] VITALS: RESP 16; O2SAT 97
[2022-01-11 23:11] VITALS: BP 140/84; PULSE 82; RESP 16; O2SAT 97
== END 2022-01-11 23:13 | disposition home or self-care (01) ==
PROVIDERS: Emergency Provider Emergency Medicine; PCP Family Medicine
DX: E11.621 Type 2 diabetes mellitus with foot ulcer (principal); Z79.84 Long term (current) use of oral hypoglycemic drugs; Z79.82 Long term (current) use of aspirin; Z79.4 Long term (current) use of insulin; I10 Essential (primary) hypertension
CPT/HCPCS: 73630; 85025; 96365; 96375; 99284; J2270; J2405; J3370; J7050

== ENCOUNTER 2022-01-14 15:23 | Inpatient (IN) | payer OTHER, SELFPAY ==
[2022-01-14 11:42] LABS: Basophils # 0.1 10^3/uL (0.0-0.1); Basophils % 0.3 %; Eosinophils % 0.1 %; Hematocrit 37.4 % (42.0-52.0); Hemoglobin 12.7 g/dL (11.7-16.6); Lymphocytes # 2.3 10^3/uL (0.8-4.8); Lymphocytes % 11.3 %; Mean Corpuscular Hemoglobin 28.1 pg (28.0-34.0); Mean Corpuscular Volume 82.7 fl (80-94); Monocytes % 9.9 %; Neutrophils # 15.61 10^3/uL (1.8-7.7); Nucleated Red Blood Cells % 0 %; Platelet Count 297 10^3/cmm (130-400); Red Blood Count 4.52 10^6/uL (4.1-5.3)
[2022-01-14 12:15] LABS: Alanine Aminotransferase 11 U/L (0-41); Alkaline Phosphatase 75 IU/L (40-130); Anion Gap 20.2 (5-19); Aspartate Amino Transferase 12 U/L (0-40); Blood Urea Nitrogen 34 mg/dL (6-20); Calcium 9.2 mg/dL (8.5-10.5); Carbon Dioxide 25 mmol/L (22-29); Chloride 90 mmol/L (98-107); Globulin 3.5 g/dL (1.3-4.6); Glomerular Filtration Rate 43.2 mL/min (90-130); Glucose 202 mg/dL (65-115); Osmolality Calculated 285 mOsm/kg (285-295); Potassium 4.2 mmol/L (3.5-5.1); Sodium 131 mmol/L (136-145); Total Bilirubin 0.6 mg/dL (0.15-1.2); Total Protein 7.5 g/dL (6.6-8.7)
[2022-01-14 16:10] VITALS: BMI 39.4
--- NOTE | 2022-01-14 16:28 | P.HP_ITS ---
Providers/Chief Complaint Admitting Physician: Yoandy Craig MD Primary Care Provider: Jaun Chandler DO Chief Complaint: Type 2 Diabetes mellitus w/ Foot ulcer E11.621 History of Present Illness Juan Jose Oropeza is a 46 year old male who was sent from wound care clinic as a direct admit for concern of worsening cellulitis and osteomyelitis of right diabetic foot ulcer. Patient has been following up with wound care clinic for quite some time. He was diagnosed with osteomyelitis 45 days ago, today was his 14th HBO treatment. For weight and pressure offloading a cast was placed which was removed a week ago. He was seen in the ER for worsening of his cellulitis, he was given Bactrim and ciprofloxacin. Today at wound care clinic he was diagnosed with CASA and worsening of his purulent cellulitis of right diabetic foot ulcer with concerns related to involvement of dorsal side of right foot. At home patient experienced fever 102, rigors and chills. I have consulted Dr. Carrion who is going to do bone debridement tomorrow morning, I will request CRP, ESR, MRI of foot start him on vancomycin and Zosyn renally dosed, start him on IV fluids, will make him n.p.o. after midnight His white count today is 20,000, he is not acidotic, creatinine 1.7, glucose 286 Review of Systems Const: Reports: fever(s) and chills Eyes: Denies: change in vision ENMT: Denies: throat pain Card: Denies: chest pain Resp: Denies: dyspnea GI: Denies: abdominal pain : Denies: flank pain Musc: Reports: extremity pain, extremity swelling and limited range of motion Skin/Breast: Reports: rash Neuro: Denies: headache(s) Psych: Denies: anxiety Endo: Denies: polyuria Jairo/Lymph: Denies: easy bruising All/Imm: Denies: urticaria Medications/Allergies Home Medications Medication Instructions Recorded Confirmed Last Taken Type aspirin 81 mg tablet,delayed 81 mg PO DAILY@1100 06/27/20 11/24/21 06/27/20 History release amlodipine 5 mg tablet 5 mg PO DAILY #90 tabs 07/22/21 11/24/21 Unknown Rx atorvastatin 80 mg tablet 80 mg PO DAILY #90 tabs 07/22/21 11/24/21 Unknown Rx diabetic supplies, miscellan. #25 ea 07/22/21 11/24/21 Unknown Rx hydrochlorothiazide 25 mg tablet 25 mg PO DAILY@1100 #90 tabs 07/22/21 11/24/21 Unknown Rx lisinopril 20 mg tablet 40 mg PO DAILY@1100 #90 tabs 07/22/21 11/24/21 Unknown Rx miscellaneous medical supply 1 ea miscellaneous .COMPLEX #1 ea 10/20/21 11/24/21 Unknown Rx ciprofloxacin HCl 500 mg tablet 500 mg PO Q12H #10 tabs 10/28/21 11/24/21 Unknown Rx insulin aspart U-100 100 unit/mL See Rx Instructions .Route 10/28/21 11/24/21 Unknown Rx (3 mL) subcutaneous pen (Novolog .COMPLEX #15 mL Flexpen U-100 Insulin aspart) ciprofloxacin HCl 500 mg tablet 500 mg PO BID #42 tabs 11/19/21 11/24/21 Unknown Rx citalopram 40 mg tablet 40 mg PO DAILY 11/24/21 11/24/21 Unknown History icosapent ethyl 1 gram capsule 2 g PO BID #360 caps 11/24/21 11/24/21 Unknown Rx (Vascepa) metformin 1,000 mg tablet 1,000 mg PO ONCE 11/24/21 11/24/21 Unknown History metoprolol tartrate 50 mg tablet 50 mg PO DAILY 11/24/21 11/24/21 Unknown History fenofibrate 160 mg tablet 160 mg PO DAILY #90 tabs 12/03/21 Unknown Rx flash glucose scanning reader #1 ea 12/09/21 Unknown Rx (FreeStyle Xochilt 2 [place]) flash glucose sensor (FreeStyle #8 ea 12/09/21 Unknown Rx Xochilt 2 Sensor) insulin detemir U-100 100 unit/mL 60 unit (0.6 mL) SUBCUT DAILY 30 01/11/22 Unknown Rx (3 mL) subcutaneous pen days #18 mL sulfamethoxazole 800 1 tab PO BID 10 days #20 tabs 01/11/22 Unknown Rx mg-trimethoprim 160 mg tablet (Bactrim DS) linezolid 600 mg tablet (Zyvox) 600 mg PO Q12H #12 tabs 01/14/22 01/14/22 Unknown Rx Allergies Allergy/AdvReac Type Severity Reaction Status Date / Time No Known Allergies Allergy Verified 11/24/21 15:23 PFSH Acute PFSH: Medical History Allergic rhinosinusitis Coronary artery disease COVID-19 Diabetic foot ulcer Essential hypertension Mixed dyslipidemia Obesity (BMI 30-39.9) Osteomyelitis of right foot Sleep apnea syndrome Snoring Type II diabetes mellitus with complication, uncontrolled Surgical History History of coronary artery stent placement Family History Father Diabetes Stroke Mother Hypertension Chronic kidney disease (CKD) Social History Smoking and tobacco status: never smoked Alcohol intake: never Vitals/I&O/Wt Last Vital Signs O2 Del Method 01/14/22 16:10 Weight last 48 hrs Weight 128.412 kg Physical Exam Narrative: Morbidly obese Patient is laying in right lateral position Right foot diabetic ulcer With erythema migrating from his plantar side towards his dorsum of foot, area demarcated Plantar diabetic foot ulcer has purulent base with tunneling Good pulses detected dorsalis pedis on both feet No signs of ischemic ulcer No signs of wet gangrene Dressing is soaked with purulent discharge Patient is awake and alert Abdomen soft Satting well on room air Spouse at the bedside Data : 01/14/22 11:07 01/14/22 11:07 A&P Assessment and plan (1) Diabetic foot ulcer with osteomyelitis: Status: Acute (2) CASA (acute kidney injury): Status: Acute (3) Osteomyelitis: Status: Acute Plan Osteomyelitis of right diabetic foot ulcer Check ESR, CRP, MRI foot Start him on broad-spectrum antibiotics renally dosed Start IV fluids Check A1c level Dr. Carrion consulted N.p.o. after midnight Patient good vascular supply No need of angiogram DVT prophylaxis Heparin after his bone debridement tomorrow I will request PICC line placement for long-term antibiotic regimen Previous wound culture showed MRSA Contact isolation Patient is full code Cardiac consistent carb diet for now CASA related to nephrotoxic agents Continue IV fluids hold nephrotoxic agents Renally dose antibiotics Hold metformin and lisinopril Patient will benefit from home health services Attestations Medical Necessity Statement*: More than 2 midnights anticipated for management of osteomyelitis Time Spent in Patient Care: 40 Coding Level of Care Code Acute Business Services Specialist Sales for g Fwd Diagnoses Diabetic foot ulcer with osteomyelitis E11.621; E11.69; L97.509; M86.9 CASA (acute kidney injury) N17.9 Osteomyelitis M86.9
[2022-01-14 16:45] VITALS: BP 144/79; PULSE 82; RESP 16; TEMP 37.6; O2SAT 95
[2022-01-14] MEDS: heparin 5,000 unit/mL INJ 1 mL 5000 UNIT SUBCUT (16:55)
[2022-01-14] MEDS: sennosides-docusate Tablet 1 TAB PO (16:55)
[2022-01-14] MEDS: piperacillin-tazobactam 3.375 GM in sodium chloride 0.9% (plus) 50 ML IV (16:56)
[2022-01-14] MEDS: sodium chloride 0.9% 1,000 ML 75 ML IV (16:56)
[2022-01-14 16:59] VITALS: RESP 16; O2SAT 95
[2022-01-14] MEDS: morphine IR 15 mg Tablet PO ×2 (16:59→22:48)
[2022-01-14 17:12] LABS: Glucose Point of Care 286 mg/dL (70-110)
--- NOTE | 2022-01-14 17:17 | PM.CONSULT ---
Providers/Reason For Consult Consulting Physician/Specialty*: Jose Carrion D.P.M. Reason for Consult*: Diabetic foot ulcer, right foot Attending Physician: Dahiana Diaz Primary Care Provider: Jaun Chandler DO History of Present Illness History of Present Illness Juan Jose Oropeza is a 46 year old diabetic male admitted to hospital service for IV antibiotics and surgical intervention on the right foot. States he had a callus at the ball of his right foot that developed into a wound this occurred in October 2021, has been receiving wound care therapy at the wound care clinic. Had a worsening of redness, drainage and subjective fevers and chills and was sent to the emergency department for admission today. Has underwent wound care modalities outpatient along with hyperbarics. Patient evaluated bedside, his is present. Review of Systems General: Reports: 10 or more systems reviewed and unremarkable except in HPI and below Const: Denies: fever(s) or chills Card: Denies: chest pain or palpitations Resp: Denies: productive cough GI: Denies: abdominal pain, nausea or vomiting : Denies: flank pain Musc: Reports: extremity swelling, joint pain, joint stiffness, limited range of motion and deformity Skin/Breast: Reports: erythema, sores, nail changes and change in hair; Denies: rash Neuro: Reports: numbness in extremities, sensory changes and difficulty walking Psych: Denies: suicidal ideation Jairo/Lymph: Denies: easy bruising Medications/Allergies Home Medications Medication Instructions Recorded Confirmed Last Taken Type aspirin 81 mg tablet,delayed 81 mg PO DAILY@1100 06/27/20 11/24/21 06/27/20 History release amlodipine 5 mg tablet 5 mg PO DAILY #90 tabs 07/22/21 11/24/21 Unknown Rx atorvastatin 80 mg tablet 80 mg PO DAILY #90 tabs 07/22/21 11/24/21 Unknown Rx diabetic supplies, miscellan. #25 ea 07/22/21 11/24/21 Unknown Rx hydrochlorothiazide 25 mg tablet 25 mg PO DAILY@1100 #90 tabs 07/22/21 11/24/21 Unknown Rx lisinopril 20 mg tablet 40 mg PO DAILY@1100 #90 tabs 07/22/21 11/24/21 Unknown Rx miscellaneous medical supply 1 ea miscellaneous .COMPLEX #1 ea 10/20/21 11/24/21 Unknown Rx ciprofloxacin HCl 500 mg tablet 500 mg PO Q12H #10 tabs 10/28/21 11/24/21 Unknown Rx insulin aspart U-100 100 unit/mL See Rx Instructions .Route 10/28/21 11/24/21 Unknown Rx (3 mL) subcutaneous pen (Novolog .COMPLEX #15 mL Flexpen U-100 Insulin aspart) ciprofloxacin HCl 500 mg tablet 500 mg PO BID #42 tabs 11/19/21 11/24/21 Unknown Rx citalopram 40 mg tablet 40 mg PO DAILY 11/24/21 11/24/21 Unknown History icosapent ethyl 1 gram capsule 2 g PO BID #360 caps 11/24/21 11/24/21 Unknown Rx (Vascepa) metformin 1,000 mg tablet 1,000 mg PO ONCE 11/24/21 11/24/21 Unknown History metoprolol tartrate 50 mg tablet 50 mg PO DAILY 11/24/21 11/24/21 Unknown History fenofibrate 160 mg tablet 160 mg PO DAILY #90 tabs 12/03/21 Unknown Rx flash glucose scanning reader #1 ea 12/09/21 Unknown Rx (FreeStyle Xochilt 2 [place]) flash glucose sensor (FreeStyle #8 ea 12/09/21 Unknown Rx Xochilt 2 Sensor) insulin detemir U-100 100 unit/mL 60 unit (0.6 mL) SUBCUT DAILY 30 01/11/22 Unknown Rx (3 mL) subcutaneous pen days #18 mL sulfamethoxazole 800 1 tab PO BID 10 days #20 tabs 01/11/22 Unknown Rx mg-trimethoprim 160 mg tablet (Bactrim DS) linezolid 600 mg tablet (Zyvox) 600 mg PO Q12H #12 tabs 01/14/22 01/14/22 Unknown Rx Allergies Allergy/AdvReac Type Severity Reaction Status Date / Time No Known Allergies Allergy Verified 11/24/21 15:23 Current Medications Generic Name Dose Route Start Last Admin Trade Name Freq PRN Reason Stop Dose Admin Heparin Sodium (Porcine) 5,000 unit 01/14/22 16:30 01/14/22 16:55 Heparin 5,000 Unit/Ml Inj 1 Ml SUBCUT 5,000 unit Q12H HUSSEIN Administration Sodium Chloride 1,000 mls @ 75 mls/hr 01/14/22 16:30 01/14/22 16:56 Sodium Chloride 0.9% IV 75 mls/hr .[id number] HUSSEIN Administration Piperacillin Sod/Tazobactam 50 mls @ 12.5 mls/hr 01/14/22 18:30 01/14/22 16:56 Sod 3.375 gm/ Sodium Chloride IV 12.5 mls/hr Q8H HUSSEIN Administration Protocol Morphine Sulfate 15 mg 01/14/22 16:33 01/14/22 16:59 Morphine Ir 15 Mg Tablet PO 15 mg Q4H PRN Administration SEVERE PAIN Senna/Docusate Sodium 1 tab 01/14/22 18:00 01/14/22 16:55 Sennosides-Docusate Tablet PO 1 tab BID HUSSEIN Administration PFSH Acute PFSH: Medical History Allergic rhinosinusitis Coronary artery disease COVID-19 Diabetic foot ulcer Essential hypertension Mixed dyslipidemia Obesity (BMI 30-39.9) Osteomyelitis of right foot Sleep apnea syndrome Snoring Type II diabetes mellitus with complication, uncontrolled Surgical History History of coronary artery stent placement Family History Father Diabetes Stroke Mother Hypertension Chronic kidney disease (CKD) Social History Smoking and tobacco status: never smoked Alcohol intake: never Vitals/I&O/Wt Last Vital Signs Temp 99.6 F 01/14/22 16:45 Pulse 82 01/14/22 16:45 Resp 16 01/14/22 16:59 BP 144/79 01/14/22 16:45 Pulse Ox 95 01/14/22 16:59 O2 Del Method 01/14/22 16:45 Weight last 48 hrs Weight 283 lb 1.6 oz Physical Exam Narrative: GENERAL: Patient is alert and oriented ?3 and in no acute distress. The following is a focused bilateral lower extremity exam. VASCULAR: Dorsalis pedis palpable bilaterally, posterior tibial arteries palpable. Capillary refill time less than 3 seconds to the distal hallux bilaterally. Calf is supple and nontender proximally and distally. Edema to the right forefoot. NEUROLOGICAL: Protective sensation intact 0/10 sites, tested with [place] Mario monofilament to bilateral feet. DERMATOLOGICAL: Wound subsecond metatarsal head right plantar forefoot measures 2 cm x 2.2 cm x 0.4 cm and probes directly to second metatarsal head. Periwound erythema with cellulitis extending to the dorsal midfoot. Wound bed is devitalized laterally down to bone. MUSCULOSKELETAL: Mild hammertoe deformity with sagittal plane dominance at the right second toe, this is reducible. Ankle joint dorsiflexion is 10 degrees beyond neutral. No pain with palpation or debridement to the right foot wound secondary to neuropathy. No pain with posterior calf squeeze. Data : 01/14/22 11:07 01/14/22 11:07 A&P Assessment and plan (1) Diabetic peripheral neuropathy associated with type 2 diabetes mellitus: Status: Acute (2) Non-pressure chronic ulcer of other part of right foot with necrosis of bone: Wound to the right plantar forefoot was sharply and excisionally debrided utilizing a sterile dermal curette down to and including subcutaneous tissue, fat layer, deep fascia and muscle. Predebridement wound measurements 2 cm x 2.2 cm x 0.4 cm. Post debridement wound measurements 2.5 cm x 2.5 cm x 0.5 cm. No anesthesia required secondary to neuropathy. Hemostasis via manual pressure. Dressing Betadine wet-to-dry postdebridement. Wound probed to bone subsecond metatarsal head. Plans for surgical debridement and incision of bone cortex tomorrow, patient to be n.p.o. at midnight. Status: Acute (3) Cellulitis of right foot: Status: Acute (4) Nondisplaced fracture of fifth right metatarsal bone: Status: Acute Plan 46-year-old diabetic male with wound to right plantar forefoot probes to second metatarsal head has been present for approximately 3 months has failed outpatient wound care modalities including hyperbarics. Presented with ascending cellulitis to the midfoot extending from the wound. Subjective fevers and chills with leukocytosis. N.p.o. at midnight Surgical debridement with plans for bone biopsy of the second metatarsal tomorrow morning 7 AM Secondary finding of fracture nonunion to the right fifth metatarsal proximal diaphyseal metaphyseal juncture this can be treated outpatient, is not directly related to infection at the plantar forefoot. Nonweightbearing to the right lower extremity at this time, may heel touch for transfers. Planning on empiric IV antibiotics during his hospitalization until stabilized, may narrow once bone culture yield further information. Plans for PICC line and long-term IV antibiotics at discharge Will need home health Plan for wound care follow-up outpatient after discharge Podiatry will follow. Coding Level of Care Code Acute Electric Gas Appliances Demonstrator for g Fwd Diagnoses Diabetic peripheral neuropathy associated with type 2 diabetes mellitus E11.42 Non-pressure chronic ulcer of other part of right foot with necrosis of bone L97.514 Cellulitis of right foot L03.115 Nondisplaced fracture of fifth right metatarsal bone S92.354A Comment CPT 24683
[2022-01-14] MEDS: insulin lispro 100 unit/1 mL SUBCUT (18:01)
[2022-01-14 18:56] LABS: Erythrocyte Sedimentation Rate 54 mm/hr (0-10)
[2022-01-14 19:20] LABS: Creatine Phosphokinase 73 U/L (39-308)
[2022-01-14 20:45] VITALS: BP 102/67; PULSE 87; RESP 13; TEMP 37.1; O2SAT 92
[2022-01-14 20:57] LABS: Glucose Point of Care 264 mg/dL (70-110)
[2022-01-14 21:11] LABS: Estmated Average Glucose 200; Hemoglobin A1C 8.6 % (4.0-6.0)
[2022-01-14 21:45] VITALS: PULSE 84; RESP 16; O2SAT 93
[2022-01-15] VITALS (21 sets, daily range): BP systolic 87–168; BP diastolic 59–87; PULSE 78–98; RESP 12–20; TEMP 36.8–39.4; O2SAT 83–94
[2022-01-15] MEDS: acetaminophen 500 mg Tablet PO ×2 (00:08→21:10)
[2022-01-15] MEDS: piperacillin-tazobactam 3.375 GM in sodium chloride 0.9% (plus) 50 ML IV ×3 (04:29→21:11)
[2022-01-15] MEDS: sodium chloride 0.9% 1,000 ML 75 ML IV ×2 (04:32→21:12)
[2022-01-15 05:31] LABS: Basophils # 0.1 10^3/uL (0.0-0.1); Basophils % 0.5 %; Eosinophils % 0.2 %; Hematocrit 36.7 % (42.0-52.0); Hemoglobin 12.2 g/dL (11.7-16.6); Lymphocytes # 2.4 10^3/uL (0.8-4.8); Lymphocytes % 13.9 %; Mean Corpuscular HGB Conc 33.2 g/dL (30.0-36.0); Mean Corpuscular Volume 84.4 fl (80-94); Mean Platelet Volume 9.4 fL (7.4-10.4); Monocytes # 1.9 10^3/uL (0.2-0.9); Neutrophils % 73.2 %; Nucleated Red Blood Cells % 0 %; Platelet Count 275 10^3/cmm (130-400); Red Blood Count 4.35 10^6/uL (4.1-5.3); Red Cell Distribution Width 11.9 % (12.1-15.1); White Blood Count 17.2 10^3/uL (4.0-10.0)
[2022-01-15 06:01] LABS: Anion Gap 17.5 (5-19); Blood Urea Nitrogen 31 mg/dL (6-20); C Reactive Protein 193.1 mg/L (0.0-4.9); Calcium 8.8 mg/dL (8.5-10.5); Carbon Dioxide 25 mmol/L (22-29); Chloride 94 mmol/L (98-107); Glomerular Filtration Rate 46.4 mL/min (90-130); Glucose 211 mg/dL (65-115); Magnesium 2.3 mg/dL (1.7-2.3); Osmolality Calculated 287 mOsm/kg (285-295); Phosphorus 2.8 mg/dL (2.5-4.5); Potassium 4.5 mmol/L (3.5-5.1); Sodium 132 mmol/L (136-145)
--- NOTE | 2022-01-15 06:07 | ANES.PREANE2 ---
Pre-Anesthetic Assessment Height/Weight: Height 1.8 m Weight 128.412 kg Temp Pulse Resp BP Pulse Ox O2 Del Method 98.3 F 90 12 121/73 91 01/15/22 04:00 01/15/22 04:00 01/15/22 04:00 01/15/22 04:00 01/15/22 04:00 01/15/22 04:00 Preop Diagnosis: diabetic infection Operation Date: 01/15/22 07:10 Proposed Procedures p Incision And Drainage Right Foot(Right) - Jose Carrion DPM Familial anesthetic complications: none Was Beta Viky taken within 24 hours: Yes Was Clonidine taken within 24 hours: N/A Last intake: 01/14/22 Social No alcohol and No tobacco Exam alert, oriented x 3, clear to auscultation bilaterally and regular rate & rhythm Airway Submandibular: within normal limits Cervical ROM: within normal limits Mallampati: Class II Comments: Comments: Missing lateral upper incisor Pulmonary Sleep Apnea CV/HEM Congestive Heart Failure and Hypertension METs > 4 CASA Hepatic None reported GI Gastroesophageal Reflux Disease Metabolic Diabetes Mellitus and Morbid Obesity [facility] [place] None reported Neuropsych Cerebrovascular Accident (RLE weakness persistent ) and Neuropathy Anesthetic Plan ASA status: 3 (46 year old male with hx of obesity, DM with neuropathy, CAD s/p cardiac stents, CASA, CVA with residual weakness ) Anesthesia: Anesthesia Evaluation and MAC Other: I discussed with the patient risks, goals, and benefits of MAC and general anesthesia. We discussed spectrum of MAC anesthesia including conversion to general as well as possibility of recall of intraoperative stimuli including discomfort/pain. Patient agrees to proceed with MAC. Risk of > 500 ml blood loss (7ml/kg in children): No Medications/Allergies Home Medications Medication Instructions Recorded Confirmed Last Taken Type aspirin 81 mg tablet,delayed 81 mg PO DAILY@1100 06/27/20 11/24/21 06/27/20 History release amlodipine 5 mg tablet 5 mg PO DAILY #90 tabs 07/22/21 11/24/21 Unknown Rx atorvastatin 80 mg tablet 80 mg PO DAILY #90 tabs 07/22/21 11/24/21 Unknown Rx diabetic supplies, miscellan. #25 ea 07/22/21 11/24/21 Unknown Rx hydrochlorothiazide 25 mg tablet 25 mg PO DAILY@1100 #90 tabs 07/22/21 11/24/21 Unknown Rx lisinopril 20 mg tablet 40 mg PO DAILY@1100 #90 tabs 07/22/21 11/24/21 Unknown Rx miscellaneous medical supply 1 ea miscellaneous .COMPLEX #1 ea 10/20/21 11/24/21 Unknown Rx ciprofloxacin HCl 500 mg tablet 500 mg PO Q12H #10 tabs 10/28/21 11/24/21 Unknown Rx insulin aspart U-100 100 unit/mL See Rx Instructions .Route 10/28/21 11/24/21 Unknown Rx (3 mL) subcutaneous pen (Novolog .COMPLEX #15 mL Flexpen U-100 Insulin aspart) ciprofloxacin HCl 500 mg tablet 500 mg PO BID #42 tabs 11/19/21 11/24/21 Unknown Rx citalopram 40 mg tablet 40 mg PO DAILY 11/24/21 11/24/21 Unknown History icosapent ethyl 1 gram capsule 2 g PO BID #360 caps 11/24/21 11/24/21 Unknown Rx (Vascepa) metformin 1,000 mg tablet 1,000 mg PO ONCE 11/24/21 11/24/21 Unknown History metoprolol tartrate 50 mg tablet 50 mg PO DAILY 11/24/21 11/24/21 Unknown History fenofibrate 160 mg tablet 160 mg PO DAILY #90 tabs 12/03/21 Unknown Rx flash glucose scanning reader #1 ea 12/09/21 Unknown Rx (FreeStyle Xochilt 2 [place]) flash glucose sensor (FreeStyle #8 ea 12/09/21 Unknown Rx Xochilt 2 Sensor) insulin detemir U-100 100 unit/mL 60 unit (0.6 mL) SUBCUT DAILY 30 01/11/22 Unknown Rx (3 mL) subcutaneous pen days #18 mL sulfamethoxazole 800 1 tab PO BID 10 days #20 tabs 01/11/22 Unknown Rx mg-trimethoprim 160 mg tablet (Bactrim DS) linezolid 600 mg tablet (Zyvox) 600 mg PO Q12H #12 tabs 01/14/22 01/14/22 Unknown Rx Allergies Allergy/AdvReac Type Severity Reaction Status Date / Time No Known Allergies Allergy Verified 11/24/21 15:23 Current Medications Generic Name Dose Route Start Last Admin Trade Name Freq PRN Reason Stop Dose Admin Acetaminophen 500 mg 01/14/22 16:30 01/15/22 00:08 Acetaminophen 500 Mg Tablet PO 500 mg Q4H PRN Administration fever Heparin Sodium (Porcine) 5,000 unit 01/14/22 16:30 01/14/22 16:55 Heparin 5,000 Unit/Ml Inj 1 Ml SUBCUT 5,000 unit Q12H HUSSEIN Administration Sodium Chloride 1,000 mls @ 75 mls/hr 01/14/22 16:30 01/15/22 04:32 Sodium Chloride 0.9% IV 75 mls/hr .[id number] HUSSEIN Administration Piperacillin Sod/Tazobactam 50 mls @ 12.5 mls/hr 01/14/22 18:30 01/15/22 04:29 Sod 3.375 gm/ Sodium Chloride IV 12.5 mls/hr Q8H HUSSEIN Administration Protocol Vancomycin HCl 1,500 mg/ 250 mls @ 166.667 mls/hr 01/14/22 17:00 01/15/22 04:29 Sodium Chloride IV 166.67 mls/hr Q12H HUSSEIN Administration Protocol Insulin Human Lispro 0 unit 01/14/22 18:00 01/14/22 18:01 Insulin Lispro 100 Unit/1 Ml SUBCUT 10 unit TIDWM HUSSEIN Administration Protocol Morphine Sulfate 15 mg 01/14/22 16:33 01/14/22 22:48 Morphine Ir 15 Mg Tablet PO 15 mg Q4H PRN Administration SEVERE PAIN Senna/Docusate Sodium 1 tab 01/14/22 18:00 01/14/22 16:55 Sennosides-Docusate Tablet PO 1 tab BID HUSSEIN Administration PFSH Anesthesia Medical History Allergic rhinosinusitis Coronary artery disease COVID-19 Diabetic foot ulcer Essential hypertension Mixed dyslipidemia Obesity (BMI 30-39.9) Osteomyelitis of right foot Sleep apnea syndrome Snoring Type II diabetes mellitus with complication, uncontrolled Surgical History History of coronary artery stent placement Family History Father Diabetes Stroke Mother Hypertension Chronic kidney disease (CKD) Social History Smoking and tobacco status: never smoked Alcohol intake: never Data Anesthesia : 01/15/22 05:17 01/15/22 05:17 Short CBC 01/14/22 01/15/22 Range/Units 11:07 05:17 WBC 20.0 H 17.2 H (4.0-10.0) 10^3/uL Hgb 12.7 12.2 (11.7-16.6) g/dL Hct 37.4 L 36.7 L (42.0-52.0) % MCV 82.7 84.4 (80-94) fl Plt Count 297 275 (130-400) 10^3/cmm Neut % (Auto) 78.0 73.2 % Neut # (Auto) 15.61 H 12.60 H (1.8-7.7) 10^3/uL BMP 01/14/22 01/15/22 11:07 05:17 Sodium 131 L 132 L Potassium 4.2 4.5 Chloride 90 L 94 L Carbon Dioxide 25 25 BUN 34 H 31 H Creatinine 1.7 H 1.6 H Glucose 202 H 211 H Calcium 9.2 8.8 Cardiac Enzymes 01/14/22 Range/Units 18:00 Creatine Kinase 73 (39-308) U/L Liver Function 01/14/22 Range/Units 11:07 Total Bilirubin 0.6 (0.15-1.2) mg/dL AST 12 (0-40) U/L ALT 11 (0-41) U/L Alkaline Phosphatase 75 (40-130) IU/L Albumin 4.0 (3.5-5.2) g/dL Coags 01/14/22 01/14/22 01/15/22 11:07 18:00 05:17 ESR 54 H C-Reactive Protein 193.1 H C-React Prot High Sens 24.390 H Microbiology 01/14/22 18:03 Blood Culture - Preliminary Blood SPECIMEN COLLECTED 01/14/22 18:00 Blood Culture - Preliminary Blood SPECIMEN COLLECTED Cardiac Studies: No Data to Display
[2022-01-15 06:12] LABS: Glucose Point of Care 216 mg/dL (70-110)
--- NOTE | 2022-01-15 06:16 | W.PM.OPSUD ---
Surgery/Procedure H&P Update DATE OF PROCEDURE: January 15, 2022 DATE H&P PERFORMED: 01/14/22 CHANGES TO PREVIOUS DOCUMENTATION: None PLANNED PROCEDURE: Operation Date: 01/15/22 07:00 Proposed Procedures p Incision And Drainage Right Foot(Right) - Jose Carrion DPM
[2022-01-15] MEDS: sodium chloride 0.9% 1,000 ML 30 ML IV (06:42)
[2022-01-15] MEDS: lidocaine 2% INJ 20 mL INJECTION (06:58)
[2022-01-15] MEDS: vancomycin 1,000 MG SDV 1000 MG XX (07:08)
--- NOTE | 2022-01-15 07:24 | P.OP_ITS ---
Operative Report Date of procedure: January 15, 2022 Pre-op diagnosis: Diabetic foot infection, right foot. Post-op diagnosis: Diabetic foot infection right foot. Osteomyelitis right second metatarsal. Post-op findings: Devitalized bone at the second metatarsal head. Deep interspace infection at the first intermetatarsal space. Procedure done: Incision and debridement down to bone cortex right foot. CPT code 91702. Implants: Quarter inch silicone drain dorsal to plantar at the right first intermetatarsal space Specimens removed/disposition: Deep tissue culture including bone of the right second metatarsal sent to microbiology for gram stain and culture Pathology: None Surgeon: Jose Carrion D.P.M. Retail Advertising Account Executive: Madi Estimated blood loss: 5 9 IV fluids: 0 Urine output: 0 Complications: None Brief History: Diabetic foot ulcer subsecond metatarsal head of the right foot with ascending cellulitis, wound probes to bone at the second metatarsal plantarly. Recommended incision and debridement down to and including bone cortex to the right foot with bone culture to be sent to microbiology for gram stain, culture and sensitivity to help guide long-term antibiotic therapies. Risk include but are not limited to pain, bleeding, numbness, infection, need for further surgical debridement, wound care modalities, antibiotic therapies and risk for amputation. Patient is agreeable wishes to proceed. No guarantees written, expressed or implied. Procedure: Under mild sedation the patient was brought to the operating room and remained and on the gurney in supine position. A timeout was performed. Anesthesia was then administered by the anesthesia service. Local anesthesia was injected by myself consisting of 20 cc of 1% lidocaine plain and a second ray block fashion. Well-padded pneumatic tourniquet applied to the right ankle. The right lower extremity was then scrubbed, prepped and draped utilizing normal aseptic technique. Right foot was then elevated and the right ankle tourniquet was inflated to 250 mmHg. Attention was directed to the right plantar forefoot wound, predebridement measurements 2 cm x 2.2 cm x 0.4 cm. Wound was sharply and excisionally debrided with brown pickups and a #15 blade and was debrided of devitalized tissue down to and including bone. Incision of bone cortex at the plantar aspect of the head of the second metatarsal was performed with a rongeur and bone culture sent to microbiology for gram stain, culture and sensitivity. A [place] elevator was introduced into the wound and into the first intermetatarsal space and without resistance and poor tissue quality being appreciated this tracked dorsally and tented the skin, for this reason an incision was performed dorsally and a linear longitudinal fashion approximately 4 cm in length and further debridement and irrigation was performed of all devitalized soft tissue. Post debridement wound measurements on the plantar aspect of the right forefoot was 3.2 cm x 3.5 cm x 5 cm. 1/4 inch silicone drain was introduced from dorsal to plantar within the first intermetatarsal space. Dressing consisting of saline wet-to-dry was then applied. Tourniquet was deflated and a prompt hyperemic response is noted to the distal digits of the right foot. Patient tolerated the procedure and anesthesia well and was transferred to the PACU with vital signs stable and vascular status intact. Following a period of postop monitoring he will be transferred back to the floor to continue empiric IV antibiotics until cultures yield further information. Planning on PICC line and long-term antibiotic therapy. Will require continued wound care modalities on discharge along with home health. Patient may be heel touch only for transfers at this time to the right lower extremity. Planning on 3 times daily Dakin's wet-to-dry for now.
--- NOTE | 2022-01-15 09:30 | MR_ITS ---
WS: [id number] MRI OF THE RIGHT FOOT WITHOUT GADOLINIUM ENHANCEMENT. INDICATION: Osteomyelitis. Diabetic foot ulcer. TECHNIQUE: MR of the RIGHT foot without gadolinium enhancement. FINDINGS: Surgical drain in the forefoot between the 1st and 2nd metatarsal heads. Postoperative bocanegra ges with fluid and edema along the plantar surface between the 1st and 2nd proximal phalanges. [place] es over the forefoot. Diffuse soft tissue edema extending into the intertarsal and plantar forefoot s oft tissues. No evidence of osteomyelitis.. Mild hallux valgus. Plantar calcaneal spurring. Soft tissue edema. Vascular calcification. Chronic un united fracture base of the 5th metatarsal. Diffuse soft tissue edema involving the dorsal midfoot an d forefoot soft tissues. No drainable fluid collection or abscess. Normal bone marrow signal in the m etatarsals and visualized tarsal bones. Normal navicular. Normal talar neck. Normal visualized phalan ges. MR/MR foot RT wo con* [id number] IMPRESSION: 1. Surgical drain between the 1st and 2nd metatarsal heads. 2. Diffuse soft tissue edema involving the midfoot and forefoot extending into the intertarsal soft tissues. No evidence of drainable abscess or fluid collec tion. 3. No evidence of osteomyelitis. 4. Ununited fracture involving the proximal shaft of the 5th metatarsal unchan ged. 5. Hallux valgus.
--- NOTE | 2022-01-15 09:57 | PC.CHAP ---
Pastoral Care Encounter/Spiritual Assessment Type of Contact [] Declined polisher aluminum visit [] Patient/Family/Request visit [] Outpatient visit [] Follow-up visit [] Physician referral [] Code/Alert [x] Routine visit [] Staff referral [] Actively dying [] Patient sleeping [] Family support [] [] Out of room [] Palliative care [] [] Receiving care in room [] Pre-surgical visit [] Trauma [] Long length of stay [] ICU visit [] Other: Relational/Emotional Strength [] Patient feels connected with others/family/visitors/staff [] Distress [] Loneliness/isolation [] Abandonment Spirituality of Patient [x] Person of Anita [] Attends Muslim of their Anita [x] Believes in Prayer [] Reads Bible or Yazidi materials [] There are Spiritual issues to be addressed News Videotape Editor Interventions [x] Prayer []x Active listening [] Non-anxious presence [] Spiritual/emotional support [] Crisis/trauma care [] Spiritual counseling [] Bereavement support [] Provided bereavement packet [] Provided Bible/devotional materials [] Provided toy/stuffed animal, coloring book to patient or family member [] Provided Communion [] Anointing/[place] [] Salvation [x] Completed spiritual assessment [] Other: Impact on Illness or Injury [] Angry [] Fearful [] Anxious [] Often cries [] Exhaustion [] Unable to work [] Unable to attend taoist [] Unable to walk/stand [] Unable to read [] Unable to drive [] Unable to eat/drink [] Unable to sleep [] Unable to be with family [] Patient intubated [] Other: Summary Time spent with patient 5 min
[2022-01-15] MEDS: atorvastatin 40 mg Tablet 80 MG PO (10:49)
[2022-01-15] MEDS: metoprolol tartrate 50 mg Tablet PO (10:49)
[2022-01-15] MEDS: sennosides-docusate Tablet 1 TAB PO ×2 (10:50→19:03)
--- NOTE | 2022-01-15 10:59 | P.PN_ITS ---
Subjective Subjective: Around midnight patient spiked fever last night, 01/15 creatinine 1.6 today He will meet sepsis criteria which she did not meet at the time of admission Overnight septic bolus was not given by the building guard deputy sheriff ESR 54 Lactic acid requested which is late Born cultures taken by Dr. Carrion this morning, I have seen patient after his debridement, he was not complaining of active pain, PICC line yet to be placed Vitals/I&O/Wt Last Vital Signs Temp 99.5 F 01/15/22 08:10 Pulse 83 01/15/22 09:10 Resp 20 H 01/15/22 08:10 BP 96/59 01/15/22 09:10 Pulse Ox 91 01/15/22 09:10 O2 Del Method 01/15/22 09:10 01/14/22 01/15/22 01/15/22 22:59 06:59 14:59 Intake Total 1601 / 1601 870 / 2471 300 / 300 Output Total 0 / 0 0 / 0 Balance 1601 / 1601 870 / 2471 300 / 300 Weight last 48 hrs Weight 128.412 kg Physical Exam Narrative: Patient laying supine Right foot covered in Omar wraps No active pain No signs of swelling Pleasant and cooperative Distended abdomen however soft S1, S2 Saturating well on room air Nonfocal neuro exam Data : 01/15/22 05:17 01/15/22 05:17 Micro: Microbiology 01/14/22 18:03 Blood Culture - Preliminary Blood SPECIMEN COLLECTED 01/14/22 18:00 Blood Culture - Preliminary Blood SPECIMEN COLLECTED A&P Assessment and plan (1) Nondisplaced fracture of fifth right metatarsal bone: Status: Acute (2) Cellulitis of right foot: Status: Acute (3) Non-pressure chronic ulcer of other part of right foot with necrosis of bone: Status: Acute (4) Diabetic peripheral neuropathy associated with type 2 diabetes mellitus: Status: Acute (5) Osteomyelitis: Status: Acute (6) CASA (acute kidney injury): Status: Acute (7) Diabetic foot ulcer with osteomyelitis: Status: Acute (8) Fatigue: Status: Acute (9) Essential hypertension: Status: Acute (10) Daytime sleepiness: Status: Acute Plan Diabetic foot ulcer osteomyelitis Sepsis not present at the time of admission Sepsis secondary to I will give him septic bolus check lactic acid, he was diagnosed with sepsis around midnight 7/29 Antibiotics were started at the time of admission Please note he spiked fever around midnight, leukocytosis trending down Is already on broad-spectrum antibiotics Blood cultures were taken at the time of admission We will follow-up with cultures taken from the OR He will get PICC line placement for 6 weeks of antibiotics ESR and CRP high He is getting septic bolus now Diabetic foot ulcer with osteomyelitis, status post intervention 01/[address] Carrion Continue broad-spectrum antibiotics Type 2 diabetes, hemoglobin A1c 8.6, hyperglycemia Continue Lantus, sliding scale Sleep apnea, CPAP at night Continue medical management Full code Consistent carb diet DVT prophylaxis initiated Attestations Medical Necessity Statement*: Continue medical management Time Spent in Patient Care: 30 Coding Level of Care Code Acute Mold Maker Plaster for g Fwd Diagnoses Nondisplaced fracture of fifth right metatarsal bone S92.354A Cellulitis of right foot L03.115 Non-pressure chronic ulcer of other part of right foot with necrosis of bone L97.514 Diabetic peripheral neuropathy associated with type 2 diabetes mellitus E11.42 Osteomyelitis M86.9 CASA (acute kidney injury) N17.9 Diabetic foot ulcer with osteomyelitis E11.621; E11.69; L97.509; M86.9 Fatigue R53.83 Essential hypertension I10 Daytime sleepiness R40.0
[2022-01-15 11:34] LABS: Glucose Point of Care 261 mg/dL (70-110)
[2022-01-15 11:58] LABS: Lactate (Lactic Acid level) 1.4 mmol/L (0.5-2.2)
--- NOTE | 2022-01-15 12:09 | XR_ITS ---
WS: [id number] Exam: XR foot RT min 3V* [id number] Date/Time of Exam: 01/15/2022 12:09 PM Reason For Exam: Postop Comparison 01/11/2022. Ununited fracture at the proximal in the fifth metatarsal unchanged in appearance. No other fractures are noted. There is bandaging material about the forefoot with the possible surgical drain. Remainin g bony structures are intact. Soft tissue edema of the forefoot. Calcaneal spurs. XR/XR foot RT min 3V* [id number] IMPRESSION: 1. Soft tissue edema of the forefoot with bandaging material and possible surgi noe drain. 2. Nonunion fracture of the proximal fifth metatarsal unchanged in appearance.
--- NOTE | 2022-01-15 13:13 | ANE.PACU2 ---
Inpatient post-anesthesia follow up: Airway intact: Yes Vital signs: Temperature 99.5 F Pulse Rate 83 Respiratory Rate 20 Blood Pressure 96/59 Pulse Oximetry 91 Oxygen Delivery Me thod Room Air Oxygen Flow Rate Fraction of Inspir ed Oxygen Hydration adequate: Yes Nausea and vomiting: No Pain level: 3 Mental status: Baseline
[2022-01-15] MEDS: sodium chloride 0.9% 1,000 ML 999 ML IV (13:16)
[2022-01-15] MEDS: insulin lispro 100 unit/1 mL SUBCUT ×2 (13:22→19:02)
[2022-01-15] MEDS: sodium hypochlorite 0.25% Btl 473 mL 1 APPLIC TOPICAL (13:25)
[2022-01-15] MEDS: morphine IR 15 mg Tablet PO ×2 (14:51→22:44)
[2022-01-15 17:03] LABS: Glucose Point of Care 241 mg/dL (70-110)
[2022-01-15] MEDS: heparin 5,000 unit/mL INJ 1 mL 5000 UNIT SUBCUT (19:00)
[2022-01-15 21:00] LABS: Glucose Point of Care 241 mg/dL (70-110)
[2022-01-15] MEDS: vancomycin 1,500 MG/300 ML PIGGYBACK 200 MG IV (21:19)
[2022-01-16] VITALS (11 sets, daily range): BP systolic 120–154; BP diastolic 64–86; PULSE 81–97; RESP 12–18; TEMP 36.7–38.4; O2SAT 87–95
[2022-01-16] MEDS: acetaminophen 500 mg Tablet PO (03:51)
[2022-01-16] MEDS: piperacillin-tazobactam 3.375 GM in sodium chloride 0.9% (plus) 50 ML IV ×3 (04:58→21:31)
[2022-01-16] MEDS: heparin 5,000 unit/mL INJ 1 mL 5000 UNIT SUBCUT ×3 (04:58→16:43)
[2022-01-16] MEDS: morphine IR 15 mg Tablet PO ×3 (05:05→21:45)
[2022-01-16 05:54] LABS: Basophils # 0.1 10^3/uL (0.0-0.1); Basophils % 0.4 %; Eosinophils % 0.2 %; Hematocrit 33.3 % (42.0-52.0); Hemoglobin 11.2 g/dL (11.7-16.6); Lymphocytes # 2.3 10^3/uL (0.8-4.8); Lymphocytes % 14.6 %; Mean Corpuscular HGB Conc 33.6 g/dL (30.0-36.0); Mean Corpuscular Hemoglobin 28.4 pg (28.0-34.0); Mean Corpuscular Volume 84.5 fl (80-94); Mean Platelet Volume 9.9 fL (7.4-10.4); Monocytes # 1.8 10^3/uL (0.2-0.9); Neutrophils # 11.63 10^3/uL (1.8-7.7); Neutrophils % 72.9 %; Nucleated Red Blood Cells % 0 %; Platelet Count 282 10^3/cmm (130-400); Red Blood Count 3.94 10^6/uL (4.1-5.3); Red Cell Distribution Width 11.8 % (12.1-15.1)
[2022-01-16 06:21] LABS: Glucose Point of Care 148 mg/dL (70-110)
[2022-01-16 06:29] LABS: Alanine Aminotransferase 8 U/L (0-41); Alkaline Phosphatase 50 IU/L (40-130); Anion Gap 15.2 (5-19); Aspartate Amino Transferase 9 U/L (0-40); Blood Urea Nitrogen 25 mg/dL (6-20); Calcium 8.8 mg/dL (8.5-10.5); Carbon Dioxide 25 mmol/L (22-29); Chloride 96 mmol/L (98-107); Globulin 3.7 g/dL (1.3-4.6); Glomerular Filtration Rate 58.9 mL/min (90-130); Glucose 150 mg/dL (65-115); Osmolality Calculated 281 mOsm/kg (285-295); Potassium 4.2 mmol/L (3.5-5.1); Sodium 132 mmol/L (136-145); Total Bilirubin 0.5 mg/dL (0.15-1.2); Total Protein 6.7 g/dL (6.6-8.7)
--- NOTE | 2022-01-16 08:49 | P.PN_ITS ---
Subjective Subjective: Patient seen bedside this morning. Denies any pain to the right foot. Dressings are clean and dry, no strikethrough. Patient denies any subjective nausea, vomiting, fever, chills, shortness of breath or chest pain. Vitals/I&O/Wt Last Vital Signs Temp 98.1 F 01/16/22 07:28 Pulse 86 01/16/22 07:28 Resp 18 01/16/22 07:28 BP 126/73 01/16/22 07:28 Pulse Ox 95 01/16/22 07:28 O2 Del Method 01/16/22 07:28 01/15/22 01/16/22 01/16/22 22:59 06:59 14:59 Intake Total 3131 / 3721 400 / 4121 Output Total 0 / 0 0 / 0 Balance 3131 / 3721 400 / 4121 Weight last 48 hrs Weight 283 lb 1.6 oz Physical Exam Narrative: GENERAL: Patient is alert and oriented ?3 and in no acute distress. The following is a focused bilateral lower extremity exam. VASCULAR: Dorsalis pedis palpable bilaterally, posterior tibial arteries palpable. Capillary refill time less than 3 seconds to the distal hallux bilaterally. Calf is supple and nontender proximally and distally. Edema to the right forefoot. NEUROLOGICAL: Protective sensation intact 0/10 sites, tested with [place] Mario monofilament to bilateral feet. DERMATOLOGICAL: Wound to the right plantar forefoot with silicone drain through and through to the dorsal incision at the first intermetatarsal space. Mild improvement to erythema. Medial right forefoot has a dusky blue undertone. No john purulence. No malodor no soft tissue crepitus on palpation. MUSCULOSKELETAL: Mild hammertoe deformity with sagittal plane dominance at the right second toe, this is reducible. Ankle joint dorsiflexion is 10 degrees beyond neutral. No pain with palpation or debridement to the right foot wound secondary to neuropathy. No pain with posterior calf squeeze. Data : 01/16/22 05:17 01/16/22 05:17 Micro: Microbiology 01/14/22 18:03 Blood Culture - Preliminary Blood NEGATIVE TO DATE 01/14/22 18:00 Blood Culture - Preliminary Blood NEGATIVE TO DATE 01/15/22 07:06 Gram Stain - Final Foot - #1 A&P Assessment and plan (1) Diabetic peripheral neuropathy associated with type 2 diabetes mellitus: Status: Acute (2) Non-pressure chronic ulcer of other part of right foot with necrosis of bone: Status: Acute (3) Cellulitis of right foot: Status: Acute (4) Nondisplaced fracture of fifth right metatarsal bone: Status: Acute Plan 46-year-old diabetic male with wound to right plantar forefoot probes to second metatarsal head has been present for approximately 3 months has failed outpatient wound care modalities including hyperbarics. Presented with ascending cellulitis to the midfoot extending from the wound. Subjective fevers and chills with leukocytosis. -Surgical debridement and deep cultures taken 01/15/2022, showing staph aureus, final cultures and sensitivity pending -Secondary finding of fracture nonunion to the right fifth metatarsal proximal diaphyseal metaphyseal juncture this can be treated outpatient, is not directly related to infection at the plantar forefoot. -Nonweightbearing to the right lower extremity at this time, may heel touch for transfers. -Plans for PICC line and long-term IV antibiotics at discharge -Will need home health on discharge -Plan for wound care follow-up outpatient after discharge -May need to undergo another surgical debridement pending his response to current treatment Attestations Medical Necessity Statement*: Diabetic foot infection with cellulitis right lower extremity Coding Level of Care Code Acute Cigarette Making Machine Catcher for [facility] Fwgeovany Diagnoses Diabetic peripheral neuropathy associated with type 2 diabetes mellitus E11.42 Non-pressure chronic ulcer of other part of right foot with necrosis of bone L97.514 Cellulitis of right foot L03.115 Nondisplaced fracture of fifth right metatarsal bone S92.354A
[2022-01-16] MEDS: insulin lispro 100 unit/1 mL SUBCUT ×3 (08:55→17:24)
[2022-01-16] MEDS: sennosides-docusate Tablet 1 TAB PO ×2 (08:56→17:24)
[2022-01-16 09:37] LABS: Vancomycin Trough 8.4 ug/mL (10-15)
[2022-01-16] MEDS: atorvastatin 40 mg Tablet 80 MG PO (09:38)
[2022-01-16] MEDS: metoprolol tartrate 50 mg Tablet PO (09:39)
[2022-01-16] MEDS: vancomycin 1,500 MG/300 ML PIGGYBACK 200 MG IV ×2 (09:42→21:06)
[2022-01-16] MEDS: sodium chloride 0.9% 1,000 ML 75 ML IV (09:43)
[2022-01-16 11:09] LABS: Glucose Point of Care 234 mg/dL (70-110)
[2022-01-16] MEDS: aspirin 81 mg EC Tablet PO (11:13)
--- NOTE | 2022-01-16 11:35 | P.PN_ITS ---
Subjective Subjective: Patient is endorsing feeling better Creatinine improving Leukocytosis improving as well Afebrile No signs of osteomyelitis on MRI I have discontinued PICC line placement order manager behavior updated He will go home on oral antibiotics once we see the bone culture results which could be Tuesday Vitals/I&O/Wt Last Vital Signs Temp 98.1 F 01/16/22 07:28 Pulse 84 01/16/22 08:00 Resp 18 01/16/22 11:16 BP 126/73 01/16/22 07:28 Pulse Ox 94 01/16/22 11:16 O2 Del Method 01/16/22 08:00 01/15/22 01/16/22 01/16/22 22:59 06:59 14:59 Intake Total 3131 / 3721 400 / 4121 1788.75 / 1788.75 Output Total 0 / 0 0 / 0 Balance 3131 / 3721 400 / 4121 1788.75 / 1788.75 Weight last 48 hrs Weight 128.412 kg Physical Exam Narrative: Patient is supine Right foot in clean new dressing, Omar wraps No active pain Patient is awake and alert Nonfocal neuro exam Morbidly obese Abdomen is soft Saturating well on room air Family at the bedside Data : 01/16/22 05:17 01/16/22 05:17 Micro: Microbiology 01/14/22 18:03 Blood Culture - Preliminary Blood NEGATIVE TO DATE 01/14/22 18:00 Blood Culture - Preliminary Blood NEGATIVE TO DATE 01/15/22 07:06 Gram Stain - Final Foot - #1 A&P Assessment and plan (1) Non-pressure chronic ulcer of other part of right foot with necrosis of bone: Status: Acute (2) Diabetic peripheral neuropathy associated with type 2 diabetes mellitus: Status: Acute (3) Osteomyelitis: Status: Acute (4) CASA (acute kidney injury): Status: Acute (5) JANAE (obstructive sleep apnea): Status: Acute Plan Diabetic foot ulcer Osteomyelitis ruled out MRI did not show any such changes Status post debridement, 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 No signs of abscess Leukocytosis improving Afebrile Continue broad-spectrum antibiotics until the day of discharge Will follow with blood cultures CASA related to nephrotoxic agents Creatinine improving gradually Continue antibiotics for now IV fluids discontinued Type 2 diabetes Continue Lantus and sliding scale Hemoglobin A1c 8.6 Hypertension currently normotensive I have held his lisinopril, continue metoprolol Full code Consistent carb diet and DVT prophylaxis Heparin Attestations Medical Necessity Statement*: Discharge on Tuesday once we see the wound culture results Time Spent in Patient Care: 30 Coding Level of Care Code Acute Heat Treating Bluer for Janell Fwd Diagnoses Non-pressure chronic ulcer of other part of right foot with necrosis of bone L97.514 Diabetic peripheral neuropathy associated with type 2 diabetes mellitus E11.42 Osteomyelitis M86.9 CASA (acute kidney injury) N17.9 JANAE (obstructive sleep apnea) G47.33
[2022-01-16 17:12] LABS: Glucose Point of Care 142 mg/dL (70-110)
[2022-01-16 21:10] LABS: Glucose Point of Care 212 mg/dL (70-110)
[2022-01-17] VITALS (8 sets, daily range): BP systolic 120–171; BP diastolic 66–83; PULSE 82–87; RESP 12–18; TEMP 36.7–37.2; O2SAT 92–94
[2022-01-17] MEDS: piperacillin-tazobactam 3.375 GM in sodium chloride 0.9% (plus) 50 ML IV ×2 (04:06→12:36)
[2022-01-17] MEDS: heparin 5,000 unit/mL INJ 1 mL 5000 UNIT SUBCUT (04:06)
[2022-01-17 04:22] LABS: Basophils # 0.1 10^3/uL (0.0-0.1); Basophils % 0.4 %; Eosinophils # 0.1 10^3/uL (0.0-0.8); Eosinophils % 0.6 %; Hematocrit 31.2 % (42.0-52.0); Hemoglobin 10.7 g/dL (11.7-16.6); Lymphocytes # 2.6 10^3/uL (0.8-4.8); Lymphocytes % 17.8 %; Mean Corpuscular HGB Conc 34.3 g/dL (30.0-36.0); Mean Corpuscular Hemoglobin 28.1 pg (28.0-34.0); Mean Corpuscular Volume 81.9 fl (80-94); Monocytes # 1.6 10^3/uL (0.2-0.9); Monocytes % 10.9 %; Neutrophils # 10.24 10^3/uL (1.8-7.7); Neutrophils % 69.8 %; Nucleated Red Blood Cells % 0 %; Platelet Count 282 10^3/cmm (130-400); Red Blood Count 3.81 10^6/uL (4.1-5.3); Red Cell Distribution Width 11.9 % (12.1-15.1); White Blood Count 14.7 10^3/uL (4.0-10.0)
[2022-01-17 04:55] LABS: Anion Gap 12.5 (5-19); Blood Urea Nitrogen 16 mg/dL (6-20); Carbon Dioxide 29 mmol/L (22-29); Chloride 98 mmol/L (98-107); Glomerular Filtration Rate 79.8 mL/min (90-130); Glucose 163 mg/dL (65-115); Osmolality Calculated 285 mOsm/kg (285-295); Potassium 4.5 mmol/L (3.5-5.1); Sodium 135 mmol/L (136-145)
[2022-01-17 06:17] LABS: Glucose Point of Care 188 mg/dL (70-110)
--- NOTE | 2022-01-17 07:26 | P.PN_ITS ---
Subjective Subjective: Patient seen bedside this morning. Denies any acute events overnight. Denies pain to the right foot. Dressing is intact without strikethrough. Patient denies any subjective nausea, vomiting, fever, chills, shortness of breath or chest pain. His life partner is bedside. Vitals/I&O/Wt Last Vital Signs Temp 99.0 F 01/17/22 03:00 Pulse 87 01/17/22 03:00 Resp 12 01/17/22 03:00 BP 120/66 01/17/22 03:00 Pulse Ox 92 01/17/22 03:00 O2 Del Method 01/17/22 03:00 01/16/22 01/17/22 01/17/22 22:59 06:59 14:59 Intake Total 1390 / 4178.75 675 / 4853.75 Balance 1390 / 4178.75 675 / 4853.75 Physical Exam Narrative: GENERAL: Patient is alert and oriented ?3 and in no acute distress. The following is a focused bilateral lower extremity exam. VASCULAR: Dorsalis pedis palpable bilaterally, posterior tibial arteries palpable. Capillary refill time less than 3 seconds to the distal hallux bilaterally. Calf is supple and nontender proximally and distally. Edema to the right forefoot. NEUROLOGICAL: Protective sensation intact 0/10 sites, tested with [place] Mario monofilament to bilateral feet. DERMATOLOGICAL: Wound to the right plantar forefoot with silicone drain through and through to the dorsal incision at the first intermetatarsal space. Mild improvement to erythema. Medial right forefoot has a dusky blue undertone. No john purulence. No malodor no soft tissue crepitus on palpation. MUSCULOSKELETAL: Mild hammertoe deformity with sagittal plane dominance at the right second toe, this is reducible. Ankle joint dorsiflexion is 10 degrees beyond neutral. No pain with palpation or debridement to the right foot wound secondary to neuropathy. No pain with posterior calf squeeze. Data : 01/17/22 03:29 01/17/22 03:29 Micro: Microbiology 01/15/22 07:06 Gram Stain - Final Foot - #1 Tissue Culture - Preliminary Staphylococcus species A&P Assessment and plan (1) Diabetic peripheral neuropathy associated with type 2 diabetes mellitus: Status: Acute (2) Non-pressure chronic ulcer of other part of right foot with necrosis of bone: Status: Acute (3) Cellulitis of right foot: Status: Acute (4) Nondisplaced fracture of fifth right metatarsal bone: Status: Acute Plan 46-year-old diabetic male with wound to right plantar forefoot probes to second metatarsal head has been present for approximately 3 months has failed outpatient wound care modalities including hyperbarics. Presented with ascending cellulitis to the midfoot extending from the wound. Subjective fevers and chills with leukocytosis. -Surgical debridement and deep cultures taken 01/15/2022, showing staph aureus, final cultures and sensitivity pending -Secondary finding of fracture nonunion to the right fifth metatarsal proximal diaphyseal metaphyseal juncture this can be treated outpatient, is not directly related to infection at the plantar forefoot. -Nonweightbearing to the right lower extremity at this time, may heel touch for transfers. -Will need home health on discharge to assist with dressing changes and supplies. -Plan for wound care follow-up outpatient after discharge -Will collaborate with hospitalist on antibiotic regimen at discharge. Will follow-up within 3 to 4 days in podiatry clinic after discharge. -Ordered cam boot with peg hole insert for additional offloading of the plantar forefoot wound will be dispensed to inpatient by [facility]. Attestations Medical Necessity Statement*: Diabetic foot infection, right Coding Level of Care Code Acute Heavy Equipment Rental Associate for Janell Rich Diagnoses Diabetic peripheral neuropathy associated with type 2 diabetes mellitus E11.42 Non-pressure chronic ulcer of other part of right foot with necrosis of bone L97.514 Cellulitis of right foot L03.115 Nondisplaced fracture of fifth right metatarsal bone S92.354A
[2022-01-17 08:50] LABS: Vancomycin Trough 10.4 ug/mL (10-15)
[2022-01-17] MEDS: insulin lispro 100 unit/1 mL SUBCUT ×3 (09:42→17:31)
[2022-01-17] MEDS: metoprolol tartrate 50 mg Tablet PO (09:43)
[2022-01-17] MEDS: sennosides-docusate Tablet 1 TAB PO ×2 (09:43→17:31)
[2022-01-17] MEDS: atorvastatin 40 mg Tablet 80 MG PO (09:43)
[2022-01-17] MEDS: vancomycin 1,500 MG/300 ML PIGGYBACK 200 MG IV ×2 (09:43→21:25)
[2022-01-17] MEDS: morphine IR 15 mg Tablet PO ×2 (09:55→16:45)
[2022-01-17] MEDS: aspirin 81 mg EC Tablet PO (10:21)
[2022-01-17] MEDS: sodium hypochlorite 0.25% Btl 473 mL 1 APPLIC TOPICAL ×2 (10:22→21:33)
[2022-01-17 12:09] LABS: Glucose Point of Care 261 mg/dL (70-110)
--- NOTE | 2022-01-17 12:38 | PM.PN ---
Subjective Subjective: Tissue culture showing MRSA Patient is clinically stable Plan for another debridement tomorrow We will plan to discharge him with a knee scooter, he already has a boot at home We will discharge him on p.o. clindamycin Discontinue Zosyn today Vitals/I&O/Wt Last Vital Signs Temp 98.1 F 01/17/22 11:53 Pulse 86 01/17/22 11:53 Resp 18 01/17/22 11:53 BP 144/79 01/17/22 11:53 Pulse Ox 94 01/17/22 11:53 O2 Del Method 01/17/22 08:00 01/16/22 01/17/22 01/17/22 22:59 06:59 14:59 Intake Total 1390 / 4178.75 675 / 4853.75 590 / 590 Balance 1390 / 4178.75 675 / 4853.75 590 / 590 Physical Exam Narrative: Drain has been removed by Dr. Carrion Right foot ulcer: It is showing skin maceration Needs another debridement No active pain No active swelling Awake and alert Saturating well on room air Family is at the bedside S1, S2 Data : 01/17/22 03:29 01/17/22 03:29 Micro: Microbiology 01/15/22 07:06 Gram Stain - Final Foot - #1 Tissue Culture - Preliminary Methicillin Resis Staph Aureus Streptococcus species A&P Assessment and plan (1) JANAE (obstructive sleep apnea): Status: Acute (2) Nondisplaced fracture of fifth right metatarsal bone: Status: Acute (3) Cellulitis of right foot: Status: Acute (4) Non-pressure chronic ulcer of other part of right foot with necrosis of bone: Status: Acute (5) Diabetic peripheral neuropathy associated with type 2 diabetes mellitus: Status: Acute (6) CASA (acute kidney injury): Status: Acute Plan Osteomyelitis ruled out Purulent cellulitis of diabetic foot ulcer No signs of ischemic ulcers Status post debridement Neck to be done tomorrow morning by Dr. 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
[2022-01-17 17:06] LABS: Glucose Point of Care 188 mg/dL (70-110)
[2022-01-17] MEDS: cetylpyridinium Lozenge 1 EACH MUCOUS MEM (17:31)
[2022-01-17 21:37] LABS: Glucose Point of Care 174 mg/dL (70-110)
[2022-01-18] VITALS: BP 181/72; PULSE 79; RESP 15; TEMP 36.9; O2SAT 96
[2022-01-18 04:00] VITALS: BP 170/92; PULSE 86; RESP 16; TEMP 36.3; O2SAT 94
[2022-01-18 06:29] LABS: Glucose Point of Care 151 mg/dL (70-110)
--- NOTE | 2022-01-18 07:07 | P.PN_ITS ---
Subjective Subjective: Patient seen bedside, life partner was present. Reports improvement overnight, states that his great toes turning pink. Denies any pain, denies subjective fevers or chills. Status post incision and debridement 01/15/2022 Vitals/I&O/Wt Last Vital Signs Temp 97.4 F L 01/18/22 04:00 Pulse 86 01/18/22 04:00 Resp 16 01/18/22 04:00 BP 170/92 01/18/22 04:00 Pulse Ox 94 01/18/22 04:00 O2 Del Method 01/17/22 20:00 01/17/22 01/18/22 01/18/22 22:59 06:59 14:59 Intake Total 770 / 1360 300 / 1660 Balance 770 / 1360 300 / 1660 Physical Exam Narrative: GENERAL: Patient is alert and oriented ?3 and in no acute distress. The following is a focused bilateral lower extremity exam. VASCULAR: Dorsalis pedis palpable bilaterally, posterior tibial arteries pal pable. Capillary refill time less than 3 seconds to the distal hallux bilaterally. Calf is supple and nontender proximally and distally. Edema to the right forefoot. NEUROLOGICAL: Protective sensation intact 0/10 sites, tested with [place] Mario monofilament to bilateral feet. DERMATOLOGICAL: Wound to the right plantar forefoot with silicone drain through and through to the dorsal incision at the first intermetatarsal space. Mild improvement to erythema. Medial right forefoot has a dusky blue undertone. No john purulence. No malodor no soft tissue crepitus on palpation. MUSCULOSKELETAL: Mild hammertoe deformity with sagittal plane dominance at the right second toe, this is reducible. Ankle joint dorsiflexion is 10 degrees beyond neutral. No pain with palpation or debridement to the right foot wound secondary to neuropathy. No pain with posterior calf squeeze. Data : 01/17/22 03:29 01/17/22 03:29 Micro: Microbiology 01/15/22 07:06 Gram Stain - Final Foot - #1 Tissue Culture - Preliminary Methicillin Resis Staph Aureus Streptococcus species A&P Assessment and plan (1) Diabetic peripheral neuropathy associated with type 2 diabetes mellitus: Status: Acute (2) Non-pressure chronic ulcer of other part of right foot with necrosis of bone: Status: Acute (3) Cellulitis of right foot: Status: Acute (4) Nondisplaced fracture of fifth right metatarsal bone: Status: Acute Plan 46-year-old diabetic male with wound to right plantar forefoot probes to second metatarsal head has been present for approximately 3 months has failed outpatient wound care modalities including hyperbarics. Presented with ascending cellulitis to the midfoot extending from the wound. Subjective fevers and chills with leukocytosis. -Surgical debridement and deep cultures taken 01/15/2022, showing staph aureus, final cultures and sensitivity pending -Secondary finding of fracture nonunion to the right fifth metatarsal proximal diaphyseal metaphyseal juncture this can be treated outpatient, is not directly related to infection at the plantar forefoot. -Surgical culture grew MRSA and strep species. Patient okay for discharge from podiatry standpoint * Clindamycin 300 mg 3 times daily, ciprofloxacin 500 mg twice daily both for 14 days * Dali's wet-to-dry twice daily dressing change, his life partner is comfortable assisting with dressing changes. * Home health for twice weekly dressing changes and supplying dressing supplies. 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
[2022-01-18 07:50] LABS: Basophils # 0.1 10^3/uL (0.0-0.1); Basophils % 0.5 %; Eosinophils # 0.2 10^3/uL (0.0-0.8); Eosinophils % 1.6 %; Hemoglobin 11.7 g/dL (11.7-16.6); Lymphocytes # 1.8 10^3/uL (0.8-4.8); Lymphocytes % 14.5 %; Mean Corpuscular HGB Conc 34.4 g/dL (30.0-36.0); Mean Corpuscular Hemoglobin 28.2 pg (28.0-34.0); Mean Corpuscular Volume 81.9 fl (80-94); Mean Platelet Volume 9.5 fL (7.4-10.4); Monocytes # 1.3 10^3/uL (0.2-0.9); Monocytes % 10.5 %; Neutrophils % 72.2 %; Nucleated Red Blood Cells % 0 %; Platelet Count 312 10^3/cmm (130-400); Red Blood Count 4.15 10^6/uL (4.1-5.3); Red Cell Distribution Width 11.9 % (12.1-15.1); White Blood Count 12.6 10^3/uL (4.0-10.0)
[2022-01-18 08:00] VITALS: BP 177/94; PULSE 88; RESP 16; O2SAT 92
[2022-01-18] MEDS: sennosides-docusate Tablet 1 TAB PO (09:16)
[2022-01-18] MEDS: atorvastatin 40 mg Tablet 80 MG PO (09:16)
[2022-01-18] MEDS: metoprolol tartrate 50 mg Tablet PO (09:16)
[2022-01-18] MEDS: insulin lispro 100 unit/1 mL SUBCUT (09:16)
[2022-01-18] MEDS: vancomycin 1,500 MG/300 ML PIGGYBACK 200 MG IV (09:28)
[2022-01-18 10:00] VITALS: PULSE 89; RESP 17; O2SAT 94
[2022-01-18 11:03] LABS: Glucose Point of Care 216 mg/dL (70-110)
--- NOTE | 2022-01-18 11:10 | P.DS_ITS ---
Discharge Providers Date of Admission: 01/14/22 15:23 Date of Discharge: January 18, 2022 Attending Provider at Admission: Yoandy Craig MD Attending Provider at Discharge: Yoandy Craig MD Primary Care Provider: Jaun Chandler DO Diagnoses at Discharge Discharge Diagnosis (1) Diabetic peripheral neuropathy associated with type 2 diabetes mellitus: Status: Acute (2) Non-pressure chronic ulcer of other part of right foot with necrosis of bone: Status: Acute (3) Cellulitis of right foot: Status: Acute (4) Nondisplaced fracture of fifth right metatarsal bone: Status: Acute Reason for Visit Reason for Visit: Type 2 Diabetes mellitus w/ Foot ulcer E11.621 Hospital Course Hospital Course 46-year-old male who was admitted as a direct transfer from wound care clinic for worsening of his right foot diabetic ulcer. There was concern for osteomyelitis MRI of the foot did not show such changes. Dr. Carrion was consulted who did surgical debridement and tissue culture showed Streptococcus and MRSA. Previous wound culture showed MRSA as well. Please note he was diagnosed with osteomyelitis about 45 days ago and received p.o. antibiotics. He was seen in the ER and prescribed Bactrim and ciprofloxacin which caused CASA. His CASA improved with IV fluid hydration. He will see Dr. Carrion in the clinic. He has finished 13 HBO therapies. I will give him Dr. Carrion follow- up he is already established at wound care clinic. No signs of bacteremia, he remained afebrile, leukocytosis trending down. At the time of discharge she will get ciprofloxacin and clindamycin because of Staph aureus/MRSA and Streptococcus species from tissue culture. I did senior counsel patient that he is still at risk of development of osteomyelitis, if his wound is not taking care of properly it might get worse to the point where we want to be able to save his foot. At this point he is very motivated, wants to take care of his sugar and wound. He also has a knee scooter at home, and offloading boot. * Clindamycin 300 mg 3 times daily, ciprofloxacin 500 mg twice daily both for 14 days * Dali's wet-to-dry twice daily dressing change, his life partner is comfortable assisting with dressing changes. * Home health for twice weekly dressing changes and supplying dressing supplies.? 1 inch packing, 4 x 4 gauze, 4 inch Kerlix and 4 inch Omar wrap, dressing changes twice daily * Offload with cam boot and knee scooter or crutches, needs to be nonwe ightbearing to the right foot * Follow-up in podiatry clinic this week at 11:45 AM 01/21/2022 Physical Exam Narrative: Right foot ulcer: It is showing skin maceration No active pain No active swelling Awake and alert Saturating well on room air Family is at the bedside S1, S2 Discharge Data Studies Completed and Pending Completed Studies During Hospitalization Category Date Time Status XR foot RT min 3V* 20500 Routine Exams 01/15/22 12:09 Completed MR foot RT wo con* 53502 Routine MRI 01/15/22 09:30 Completed Pending at discharge Category Date Time Status Blood Culture Stat Lab 01/14/22 18:03 Results Tissue Culture and Gram Stain Routine Lab 01/15/22 07:06 Results Vancomycin Trough Timed Lab 01/18/22 20:30 Ordered Radiology Impressions Foot MRI 01/15/22 09:30 IMPRESSION: 1. Surgical drain between the 1st and 2nd metatarsal heads. 2. Diffuse soft tissue edema involving the midfoot and forefoot extending into the intertarsal soft tissues. No evidence of drainable abscess or fluid collection. 3. No evidence of osteomyelitis. 4. 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 5. Hallux valgus. Foot X-Ray 01/15/22 12:09 IMPRESSION: 1. Soft tissue edema of the forefoot with bandaging material and possible surgical drain. 2. Nonunion fracture of the proximal fifth metatarsal unchanged in appearance. Laboratory Results WBC 12.6 10^3/uL (4.0-10.0) H 01/18/22 07:38 RBC 4.15 10^6/uL (4.1-5.3) 01/18/22 07:38 Hgb 11.7 g/dL (11.7-16.6) 01/18/22 07:38 Hct 34.0 % (42.0-52.0) L 01/18/22 07:38 MCV 81.9 fl (80-94) 01/18/22 07:38 MCH 28.2 pg (28.0-34.0) 01/18/22 07:38 MCHC 34.4 g/dL (30.0-36.0) 01/18/22 07:38 RDW 11.9 % (12.1-15.1) L 01/18/22 07:38 Plt Count 312 10^3/cmm (130-400) 01/18/22 07:38 MPV 9.5 fL (7.4-10.4) 01/18/22 07:38 Neut % (Auto) 72.2 % 01/18/22 07:38 Lymph % (Auto) 14.5 % 01/18/22 07:38 Barry % (Auto) 10.5 % 01/18/22 07:38 Eos % (Auto) 1.6 % 01/18/22 07:38 Baso % (Auto) 0.5 % 01/18/22 07:38 Neut # (Auto) 9.10 10^3/uL (1.8-7.7) H 01/18/22 07:38 Lymph # (Auto) 1.8 10^3/uL (0.8-4.8) 01/18/22 07:38 Barry # (Auto) 1.3 10^3/uL (0.2-0.9) H 01/18/22 07:38 Eos # (Auto) 0.2 10^3/uL (0.0-0.8) 01/18/22 07:38 Baso # (Auto) 0.1 10^3/uL (0.0-0.1) 01/18/22 07:38 Nucleated RBC % (auto) 0 % 01/18/22 07:38 Nucleated RBCs # 0.0 /100WBC 01/18/22 07:38 ESR 54 mm/hr (0-10) H 01/14/22 18:00 Sodium 135 mmol/L (136-145) L 01/17/22 03:29 Potassium 4.5 mmol/L (3.5-5.1) 01/17/22 03:29 Chloride 98 mmol/L (98-107) 01/17/22 03:29 Carbon Dioxide 29 mmol/L (22-29) 01/17/22 03:29 Anion Gap 12.5 (5-19) 01/17/22 03:29 BUN 16 mg/dL (6-20) 01/17/22 03:29 Creatinine 1.0 mg/dL (0.7-1.2) 01/17/22 03:29 GFR Calculation 79.8 mL/min (90-130) L 01/17/22 03:29 Glucose 163 mg/dL (65-115) H 01/17/22 03:29 POC Glucose 216 mg/dL (70-110) H 01/18/22 10:52 Estimat Average Glucose 200 01/14/22 18:00 Hemoglobin A1c 8.6 % (4.0-6.0) H 01/14/22 18:00 Calculated Osmolality 285 mOsm/kg (285-295) 01/17/22 03:29 Lactate 1.4 mmol/L (0.5-2.2) 01/15/22 11:30 Calcium 9.0 mg/dL (8.5-10.5) 01/17/22 03:29 Phosphorus 2.8 mg/dL (2.5-4.5) 01/15/22 05:17 Magnesium 2.3 mg/dL (1.7-2.3) 01/15/22 05:17 Total Bilirubin 0.5 mg/dL (0.15-1.2) 01/16/22 05:17 AST 9 U/L (0-40) 01/16/22 05:17 ALT 8 U/L (0-41) 01/16/22 05:17 Alkaline Phosphatase 50 IU/L (40-130) 01/16/22 05:17 Creatine Kinase 73 U/L (39-308) 01/14/22 18:00 C-Reactive Protein 193.1 mg/L (0.0-4.9) H 01/15/22 05:17 C-React Prot High Sens 24.390 mg/dL (0.0-0.3) H 01/14/22 11:07 Total Protein 6.7 g/dL (6.6-8.7) 01/16/22 05:17 Albumin 3.0 g/dL (3.5-5.2) L 01/16/22 05:17 Globulin 3.7 g/dL (1.3-4.6) 01/16/22 05:17 Procalcitonin 0.40 ng/mL (0-0.5) 01/14/22 18:00 Vancomycin Trough 10.4 ug/mL (10-15) 01/17/22 08:14 Vitals Last Vital Signs Temp 97.4 F L 01/18/22 04:00 Pulse 89 01/18/22 10:00 Resp 17 01/18/22 10:00 BP 177/94 01/18/22 08:00 Pulse Ox 94 01/18/22 10:00 O2 Del Method 01/18/22 10:00 Discharge Plan Discharge Patient Disposition: Home Condition: Stable Prescriptions: New clindamycin HCl 300 mg capsule 600 mg PO Q8H 14 Days Qty: 84 0RF hydrocodone-acetaminophen 5-325 mg tablet 1 tab PO BID PRN (Reason: pain) Qty: 20 0RF sennosides-docusate sodium [Senna-S] 8.6-50 mg tablet 1 tab-cap PO DAILY PRN (Reason: constipation) Qty: 20 0RF ciprofloxacin HCl 500 mg tablet 500 mg PO Q12H 14 Days Qty: 28 0RF Continued citalopram 40 mg tablet 40 mg PO DAILY metformin 1,000 mg tablet 1,000 mg PO ONCE metoprolol tartrate 50 mg tablet 50 mg PO DAILY icosapent ethyl [Vascepa] 1 gram capsule 2 g PO BID Qty: 360 3RF insulin aspart U-100 [Novolog Flexpen U-100 Insulin] 100 unit/mL (3 mL) insulin pen See Rx Instructions .ROUTE .COMPLEX Qty: 15 5RF Rx Instructions: 2 units:-150-200, 4u:-200-250, 6u:-250-300, 8u:350-400, 10u: >400. amlodipine 5 mg tablet 5 mg PO DAILY Qty: 90 1RF atorvastatin 80 mg tablet 80 mg PO DAILY Qty: 90 1RF (DME) diabetic supplies, miscellan. Misc See Rx Instructions .Route Qty: 25 2RF Rx Instructions: As directed hydrochlorothiazide 25 mg tablet 25 mg PO DAILY@1100 Qty: 90 1RF lisinopril 20 mg tablet 40 mg PO DAILY@1100 Qty: 90 1RF fenofibrate 160 mg tablet 160 mg PO DAILY Qty: 90 3RF (DME) FreeStyle Xochilt 2 [place] Misc See Rx Instructions .Route Qty: 1 0RF Rx Instructions: Check BS 4-6 times a day. (DME) FreeStyle Xochilt 2 Sensor Kit See Rx Instructions .Route Qty: 8 3RF Rx Instructions: Change every 14 days. insulin detemir U-100 100 unit/mL (3 mL) insulin pen 60 unit SUBCUT DAILY 30 Days Qty: 18 0RF aspirin [Aspir-81] 81 mg Tablet,Delayed Release (Dr/Ec) 81 mg PO DAILY@1100 Discontinued linezolid [Zyvox] 600 mg tablet 600 mg PO Q12H Qty: 12 0RF Discharge Orders: Discharge Order (Routine); Ordered 01/18/22 Ordered By: Yoandy Craig Referrals: Jose Carrion DPM [Physician] - 01/21/22 11:45 am WOUND CARE CLINIC, [Staff Physician] - 7-10 days Discharge Diet: Diabetic Discharge Activity: Use walker/crutches as instructed and As per PT/OT instructions Patient Instructions: Opioid Safety Activity Restrictions/Additional Instructions: * Clindamycin 600 mg 3 times daily, ciprofloxacin 500 mg twice daily both for 14 days * Dali's wet-to-dry twice daily dressing change, his life partner is comfortable assisting with dressing changes. * Home health for twice weekly dressing changes and supplying dressing supplies.? 1 inch packing, 4 x 4 gauze, 4 inch Kerlix and 4 inch Omar wrap, dressing changes twice daily * Offload with cam boot and knee scooter or crutches, needs to be nonweightbearing to the right foot * Follow-up in podiatry clinic this week at 11:45 AM 01/21/2022 Discharge Attestations Time Spent in Discharge Care*: less than 30 min Quality Metrics Clinical Quality Measures [ No reported AMI, CVA or VTE this stay] Coding Level of Care Code Acute [facility] note Diagnoses Diabetic peripheral neuropathy associated with type 2 diabetes mellitus E11.42 Non-pressure chronic ulcer of other part of right foot with necrosis of bone L97.514 Cellulitis of right foot L03.115 Nondisplaced fracture of fifth right metatarsal bone S92.354A
[2022-01-18 12:06] VITALS: BP 177/94; PULSE 89; RESP 17; TEMP 36.3; O2SAT 94
== END 2022-01-18 12:07 | disposition home or self-care (01) | DRG 629 ==
LOC: MEDSURG 15:27
PROVIDERS: Nurse Practitioner Family; Podiatrist Foot & Ankle Surgery; Admitting Provider Internal Medicine; PCP Family Medicine; Visit Provider Internal Medicine
PROC: 0QBN0ZZ Excision of Right Metatarsal, Open Approach (ICD-10-PCS; principal; 2022-01-15 07:00)
DX: E11.621 Type 2 diabetes mellitus with foot ulcer (principal); L03.115 Cellulitis of right lower limb; E11.42 Type 2 diabetes mellitus with diabetic polyneuropathy; N17.9 Acute kidney failure, unspecified; E11.628 Type 2 diabetes mellitus with other skin complications; L97.514 Non-pressure chronic ulcer of other part of right foot with necrosis of bone; B95.4 Other streptococcus as the cause of diseases classified elsewhere; B95.62 Methicillin resistant Staphylococcus aureus infection as the cause of diseases classified elsewhere; I25.10 Atherosclerotic heart disease of native coronary artery without angina pectoris; E78.2 Mixed hyperlipidemia; G47.33 Obstructive sleep apnea (adult) (pediatric); E11.65 Type 2 diabetes mellitus with hyperglycemia; S92.354A Nondisplaced fracture of fifth metatarsal bone, right foot, initial encounter for closed fracture; X58.XXXA Exposure to other specified factors, initial encounter; I11.0 Hypertensive heart disease with heart failure; I50.9 Heart failure, unspecified; E66.01 Morbid (severe) obesity due to excess calories; I69.341 Monoplegia of lower limb following cerebral infarction affecting right dominant side; Z68.39 Body mass index [BMI] 39.0-39.9, adult; Z79.4 Long term (current) use of insulin; Z79.84 Long term (current) use of oral hypoglycemic drugs; Z95.5 Presence of coronary angioplasty implant and graft; Z79.82 Long term (current) use of aspirin
CPT/HCPCS: 36415; 36416; 73630; 73718; 80048; 80053; 80202; 82550; 82962; 83036; 83605; 83735; 84100; 84145; 85025; 85651; 86140; 86141; 87040; 87070; 87077; 87176; 87186; 87205; 96372; J1644; J1815; J2405; J2543; J2704; J3010; J3370; J7030; J7050

== ENCOUNTER → 2022-02-11 12:00 | Outpatient (BNVA) | payer OTHER, SELFPAY | PROVIDERS: PCP Family Medicine; Visit Provider Podiatrist Foot & Ankle Surgery | DX: L97.513 Non-pressure chronic ulcer of other part of right foot with necrosis of muscle (principal); E11.8 Type 2 diabetes mellitus with unspecified complications; E11.65 Type 2 diabetes mellitus with hyperglycemia; E78.2 Mixed hyperlipidemia | CPT/HCPCS: 80053; 80061; 83036; 85025 ==

== ENCOUNTER → 2022-03-10 13:11 | Outpatient (BNVA) | payer OTHER, SELFPAY | PROVIDERS: PCP Family Medicine; Visit Provider Podiatrist Foot & Ankle Surgery | DX: E11.621 Type 2 diabetes mellitus with foot ulcer (principal); E11.42 Type 2 diabetes mellitus with diabetic polyneuropathy; Z79.4 Long term (current) use of insulin; Z79.84 Long term (current) use of oral hypoglycemic drugs; L97.513 Non-pressure chronic ulcer of other part of right foot with necrosis of muscle | CPT/HCPCS: 73630 ==

== ENCOUNTER → 2022-05-10 14:40 | Outpatient (BNVA) | payer OTHER, SELFPAY | PROVIDERS: PCP Family Medicine; Visit Provider Podiatrist Foot & Ankle Surgery | DX: E11.621 Type 2 diabetes mellitus with foot ulcer (principal); L97.514 Non-pressure chronic ulcer of other part of right foot with necrosis of bone; E11.42 Type 2 diabetes mellitus with diabetic polyneuropathy; Z79.4 Long term (current) use of insulin; Z79.84 Long term (current) use of oral hypoglycemic drugs | CPT/HCPCS: 73630; 87070; 87075; 87205 ==

== ENCOUNTER → 2022-05-24 13:26 | Outpatient (BNVA) | payer OTHER, SELFPAY | PROVIDERS: PCP Family Medicine; Visit Provider Podiatrist Foot & Ankle Surgery | DX: L97.514 Non-pressure chronic ulcer of other part of right foot with necrosis of bone (principal); E11.621 Type 2 diabetes mellitus with foot ulcer; E11.42 Type 2 diabetes mellitus with diabetic polyneuropathy; Z79.84 Long term (current) use of oral hypoglycemic drugs; Z79.4 Long term (current) use of insulin | CPT/HCPCS: 73630 ==

== ENCOUNTER → 2022-08-11 15:16 | Outpatient (BNVA) | payer OTHER, SELFPAY | PROVIDERS: PCP Family Medicine; Visit Provider Family Medicine | DX: K21.9 Gastro-esophageal reflux disease without esophagitis (principal); R19.7 Diarrhea, unspecified; E11.65 Type 2 diabetes mellitus with hyperglycemia; E11.8 Type 2 diabetes mellitus with unspecified complications; I10 Essential (primary) hypertension | CPT/HCPCS: 80053; 80061; 83036; 84439; 84443; 85025 ==

== ENCOUNTER → 2023-05-23 16:15 | Outpatient (BNVA) | payer OTHER, SELFPAY | PROVIDERS: PCP Family Medicine; Visit Provider Family Medicine | DX: I10 Essential (primary) hypertension (principal); F41.9 Anxiety disorder, unspecified; F32.A Depression, unspecified; E11.65 Type 2 diabetes mellitus with hyperglycemia; Z12.5 Encounter for screening for malignant neoplasm of prostate | CPT/HCPCS: 80053; 80061; 83036; 85025; G0103 ==

== ENCOUNTER 2024-07-20 20:35 | Emergency (ER) | payer OTHER, SELFPAY ==
[2024-07-20 20:43] VITALS: BP 147/91; PULSE 106; RESP 18; TEMP 37.1; O2SAT 96; BMI 39.7
[2024-07-20 21:30] LABS: Covid PCR NEGATIVE (Negative); Influenza A POSITIVE (Negative); Influenza B NEGATIVE (Negative); Respiratory Syncytial Virus Ce NEGATIVE (Negative)
[2024-07-20] MEDS: dexamethasone 10 mg/mL INJ IM (22:23)
[2024-07-20] MEDS: oseltamivir phosphate 75 mg Capsule PO (22:23)
--- NOTE | 2024-07-20 22:23 | ED_ITS ---
HPI - URI/Sore Throat General: Chief Complaint: Upper Respiratory Infection Stated Complaint: fever cough Time Seen by Provider: 07/20/24 21:34 Source: patient Mode of arrival: ambulatory Limitations: no limitations History of Present Illness: Patient is a 48-year-old male presents the emergency department complaining of upper respiratory symptoms for the past couple days. He is reporting sudden ons et of fever in the morning, body aches, cough, and congestion. Does not feel short of breath, no history of asthma or COPD. He does report a cardiac history of heart attack and stroke but is not having any chest pain. Reports possible sick contact exposure. Reports taking numerous jjey-duz-[id number] medications including Mucinex, ibuprofen, and ebga-[id number]-[id number] cough cold medication with minimal relief. MD elicited complaint: fever Onset (ago): day(s) Consistency: constant Severity: moderate Context: sick contacts Associated symptoms: Reports fever(s) and nasal congestion; Deny abdominal pain, chills, chest pain, diarrhea, ear or mastoid pain, headache(s), nausea or vomiting Treatments prior to arrival: ibuprofen and cold medicine Related Data Home Medications Medication Instructions Recorded Confirmed aspirin 81 mg tablet,delayed 81 mg PO DAILY@1100 06/27/20 04/30/24 release Previous Rx's Medication Instructions Recorded fenofibrate 160 mg tablet 160 mg PO DAILY #90 tabs 12/03/21 flash glucose scanning reader #1 ea 12/09/21 (FreeStyle Xochilt 2 [place]) omega-3 acid ethyl esters 1 gram See Rx Instructions .Route 05/04/22 capsule .COMPLEX #220 caps pen needle, diabetic 32 gauge x #50 ea 05/04/2206/23 (Novofine 32) flash glucose sensor (FreeStyle #1 ea 12/13/22 Xochilt 2 Sensor kit) insulin detemir U-100 100 unit/mL 80 unit (0.8 mL) SUBCUT DAILY 90 03/28/23 (3 mL) subcutaneous pen days #60 mL amlodipine 5 mg tablet See Rx Instructions .Route 05/23/23 .COMPLEX #90 tabs atorvastatin 80 mg tablet See Rx Instructions .Route 05/23/23 .COMPLEX #90 tabs citalopram 40 mg tablet See Rx Instructions .Route 05/23/23 .COMPLEX #180 tabs hydrochlorothiazide 25 mg tablet See Rx Instructions .Route 05/23/23 .COMPLEX #90 tabs minocycline 100 mg capsule 100 mg PO DAILY #30 caps 05/23/23 pantoprazole 40 mg tablet,delayed See Rx Instructions .Route 11/10/23 release .COMPLEX #60 tabs metformin 1,000 mg tablet See Rx Instructions .Route 11/21/23 .COMPLEX #60 tabs metoprolol tartrate 50 mg tablet See Rx Instructions .Route 11/21/23 .COMPLEX #60 tabs insulin aspart U-100 100 unit/mL See Rx Instructions .Route 02/06/24 (3 mL) subcutaneous pen (Novolog .COMPLEX #15 mL FlexPen U-100 Insulin aspart) amoxicillin 500 mg capsule 500 mg PO TID #21 caps 04/30/24 lisinopril 40 mg tablet See Rx Instructions .Route 05/01/24 .COMPLEX #90 tabs oseltamivir 75 mg capsule (Tamiflu) 75 mg PO BID 5 days #10 caps 07/20/24 Allergies Allergy/AdvReac Type Severity Reaction Status Date / Time No Known Allergies Allergy Verified 07/20/24 20:47 Review of Systems General: Reports: 10 or more systems reviewed and unremarkable except in HPI and below Const: Reports: fever(s) and body aches; Denies: chills or fatigue Eyes: Denies: change in vision ENMT: Reports: nasal congestion; Denies: throat pain, ear or mastoid pain or nasal discharge Card: Denies: chest pain, palpitations, swelling of feet/ankles or lightheadedness Resp: Reports: non-productive cough; Denies: dyspnea, productive cough or wheezing GI: Denies: abdominal pain, nausea, vomiting, diarrhea or constipation : Denies: flank pain, difficulty urinating, dysuria or urinary frequency Musc: Denies: neck pain, back pain or joint pain Skin/Breast: Denies: rash Neuro: Denies: headache(s), numbness in extremities or weakness in extremities PFSH ED PFSH: Medical History JANAE (obstructive sleep apnea) Nondisplaced fracture of fifth right metatarsal bone Cellulitis of right foot Non-pressure chronic ulcer of other part of right foot with necrosis of bone Diabetic peripheral neuropathy associated with type 2 diabetes mellitus Diabetic foot ulcer with osteomyelitis Osteomyelitis of right foot Diabetic foot ulcer Allergic rhinosinusitis Mixed dyslipidemia Sleep apnea syndrome Daytime sleepiness Obesity (BMI 30-39.9) Snoring Coronary artery disease Type II diabetes mellitus with complication, uncontrolled Essential hypertension COVID-19 Surgical History History of coronary artery stent placement Family History Father Diabetes Stroke Mother Hypertension Chronic kidney disease (CKD) Social History Smoking and tobacco/nicotine status: unknown if used tobacco/nicotine Alcohol intake: never Physical Exam Const: COMMON NORMALS: no acute distress and healthy appearing GENERAL APPEARANCE: cooperative, comfortable and well developed HENMT: COMMON NORMALS: normocephalic, atraumatic, hearing grossly normal bilaterally, external ears normal, EAC's normal and Normal external nose present HEAD & SCALP: normal to inspection, normocephalic and atraumatic FACE & SINUS: normal facial exam and sinuses nontender NOSE: Normal external nose present, Normal nares present and No nasal polyps present EXTERNAL EAR: Yes external ears normal EXTERNAL AUDITORY CANAL: EAC's normal MOUTH: Normal oral and palatal mucosa present Eye: COMMON NORMALS: EOMs intact bilaterally, conjunctivae normal and normal visual faria by confrontation GENERAL EYE: appearance normal, both eyes and all related structures CONJUNCTIVA: Yes conjunctivae normal Neck/C-Spine: COMMON NORMALS: full ROM, no lymphadenopathy, supple and no meningeal signs GENERAL: Yes normal visual inspection Chest: COMMONS NORMALS: normal inspection of the chest Resp: COMMON NORMALS: normal respiratory effort and clear to auscultation bilaterally EFFORT & INSPECTION: Yes able to speak in complete sentences AUSCULTATION: clear to auscultation bilaterally Cardio: COMMON NORMALS: regular rate, regular rhythm, S1 normal heart sound present and S2 normal heart sound present RATE: regular rate RHYTHM: regular rhythm HEART SOUNDS: S1 normal heart sound present, S2 normal heart sound present, no gallops, no murmurs and no rubs Extremity: COMMON NORMALS: normal to inspection, full ROM and capillary refill normal Neuro: MENINGEAL SIGNS: Yes no meningeal signs Skin: COMMON NORMALS: no rashes or lesions noted GENERAL SKIN EXAM: no rashes or lesions noted Course Vital Signs: Vital signs: Vital Signs Temperature 98.7 F 07/20/24 20:43 Pulse Rate 106 H 07/20/24 20:43 Respiratory Rate 18 07/20/24 20:43 Blood Pressure 147/91 07/20/24 20:43 Pulse Oximetry 96 07/20/24 20:43 Oxygen Delivery Me thod Room Air 07/20/24 20:43 MDM - URI/Sore Throat Medical Decision Making Patient presenting with upper respiratory symptoms, nonspecific. Possible sick contact exposure to viral illness. He was positive for flu and I do think this is explaining his symptoms. Given shot of Decadron here, started on Tamiflu as he is within the timeframe. Requesting Tessalon Perlradha for cough, general return precautions given. With his cardiac history told to return with any chest pain or even worsening of shortness of breath and will do further workup. He is comfortable discharging at this time as he feels his symptoms are all from the flu. Will follow-up otherwise with primary care. Lab Data Laboratory Results Coronavirus (PCR) Negative (Negative) 07/20/24 20:51 Influenza A (PCR) Positive (Negative) 07/20/24 20:51 Influenza Type B (PCR) Negative (Negative) 07/20/24 20:51 RSV (PCR) Negative (Negative) 07/20/24 20:51 No radiology studies performed this visit Discharge Plan Discharge Patient Disposition: Home Clinical Impression: Influenza Condition: Stable Prescriptions: New oseltamivir [Tamiflu] 75 mg capsule 75 mg PO BID 5 Days Qty: 10 0RF No Action amoxicillin 500 mg capsule 500 mg PO TID Qty: 21 0RF minocycline 100 mg capsule 100 mg PO DAILY Qty: 30 1RF hydrochlorothiazide 25 mg tablet See Rx Instructions .ROUTE .COMPLEX Qty: 90 3RF Dose Instruction: TAKE ONE TABLET BY MOUTH EVERY DAY at 11 am Rx Instructions: TAKE ONE TABLET BY MOUTH EVERY DAY at 11 am amlodipine 5 mg tablet See Rx Instructions .ROUTE .COMPLEX Qty: 90 3RF Dose Instruction: TAKE ONE TABLET BY MOUTH EVERY DAY Rx Instructions: TAKE ONE TABLET BY MOUTH EVERY DAY atorvastatin 80 mg tablet See Rx Instructions .ROUTE .COMPLEX Qty: 90 3RF Dose Instruction: TAKE 1 TABLET BY MOUTH EVERY DAY Rx Instructions: TAKE 1 TABLET BY MOUTH EVERY DAY citalopram 40 mg tablet See Rx Instructions .ROUTE .COMPLEX Qty: 180 3RF Dose Instruction: TAKE 1 TABLET BY MOUTH TWO TIMES DAILY AT 11AM AND 11PM Rx Instructions: TAKE 1 TABLET BY MOUTH TWO TIMES DAILY AT 11AM AND 11PM fenofibrate 160 mg tablet 160 mg PO DAILY Qty: 90 3RF (DME) FreeStyle Xochilt 2 [place] Misc See Rx Instructions .Route Qty: 1 0RF Rx Instructions: Check BS 4-6 times a day. (DME) pen needle, diabetic [Novofine 32] 32 gauge x 1/4 needle See Rx Instructions .Route Qty: 50 0RF Rx Instructions: As directed omega-3 acid ethyl esters 1 gram capsule See Rx Instructions .ROUTE .COMPLEX Qty: 220 3RF Dose Instruction: TAKE 2 CAPSULES BY MOUTH TWICE DAILY Rx Instructions: TAKE 2 CAPSULES BY MOUTH TWICE DAILY (DME) FreeStyle Xochilt 2 Sensor Kit See Rx Instructions .Route Qty: 1 0RF Rx Instructions: Change every 14 days. Levemir FlexTouch U100 Insulin 100 unit/mL (3 mL) insulin pen 80 unit SUBCUT DAILY 90 Days Qty: 60 3RF pantoprazole 40 mg tablet,delayed release (DR/EC) See Rx Instructions .ROUTE .COMPLEX Qty: 60 0RF Dose Instruction: TAKE 1 TABLET BY MOUTH TWICE DAILY Rx Instructions: TAKE 1 TABLET BY MOUTH TWICE DAILY *Needs Appointment* metoprolol tartrate 50 mg tablet See Rx Instructions .ROUTE .COMPLEX Qty: 60 0RF Dose Instruction: TAKE 1 TABLET BY MOUTH TWO TIMES DAILY AT 11AM AND 11PM Rx Instructions: TAKE 1 TABLET BY MOUTH TWO TIMES DAILY AT 11AM AND 11PM metformin 1,000 mg tablet See Rx Instructions .ROUTE .COMPLEX Qty: 60 0RF Dose Instruction: TAKE 1 TABLET BY MOUTH TWO TIMES DAILY AT 11AM AND 11PM Rx Instructions: TAKE 1 TABLET BY MOUTH TWO TIMES DAILY AT 11AM AND 11PM insulin aspart U-100 [Novolog FlexPen U-100 Insulin] 100 unit/mL (3 mL) insulin pen See Rx Instructions .ROUTE .COMPLEX Qty: 15 5RF Dose Instruction: inject PER sliding scale THREE TIMES DAILY WITH meals: TWO units: 150-200, FOUR units: 200-250, SIX UNITS: 250-300, EIGHT u:350-400, 10 UNITS: >400 *max daily DOSE of 30 unists* Rx Instructions: PER sliding scale THREE TIMES DAILY W/meals:2units:150-200,4U: 200-250,6U:250-300,8U:350-400,10U:>400 max daily DOSE of 30 units lisinopril 40 mg tablet See Rx Instructions .ROUTE .COMPLEX Qty: 90 0RF Dose Instruction: TAKE ONE TABLET BY MOUTH EVERY DAY at 11a.m. Rx Instructions: TAKE ONE TABLET BY MOUTH EVERY DAY at 11a.m. aspirin 81 mg Tablet,Delayed Release (Dr/Ec) 81 mg PO DAILY@1100 Discharge Orders: Discharge ED (Routine); Ordered 07/20/24 Ordered By: Gene Rios Referrals: Jaun Chandler DO [Primary Care Provider] - Patient Instructions: Influenza (ED) Activity Restrictions/Additional Instructions: Take Tamiflu as prescribed. Follow-up closely with primary care. Please return with any chest pain, worsening breathing, or other concerns you have. Motrin and Tylenol for fevers or bodyaches. Drink plenty of fluids. Coding Level of Care Code ED Service Team Leader for Janell Rich
[2024-07-20] MEDS: benzonatate 100 mg Capsule 200 MG PO (22:53)
[2024-07-20 23:03] VITALS: BP 168/119; PULSE 107; O2SAT 94
== END 2024-07-20 23:04 | disposition home or self-care (01) ==
PROVIDERS: Emergency Medicine; Emergency Provider Physician Assistant; PCP Family Medicine
DX: J10.1 Influenza due to other identified influenza virus with other respiratory manifestations (principal); Z11.52 Encounter for screening for COVID-19; Z79.84 Long term (current) use of oral hypoglycemic drugs; Z79.4 Long term (current) use of insulin; Z79.82 Long term (current) use of aspirin; E11.42 Type 2 diabetes mellitus with diabetic polyneuropathy; E78.2 Mixed hyperlipidemia
CPT/HCPCS: 87637; 96372; 99284; J1100

== ENCOUNTER → 2024-09-24 14:55 | Outpatient (BNVA) | payer OTHER, SELFPAY | PROVIDERS: PCP Family Medicine; Visit Provider Family Medicine | DX: I10 Essential (primary) hypertension (principal); R79.89 Other specified abnormal findings of blood chemistry; E11.8 Type 2 diabetes mellitus with unspecified complications; E11.65 Type 2 diabetes mellitus with hyperglycemia; G47.33 Obstructive sleep apnea (adult) (pediatric); Z12.5 Encounter for screening for malignant neoplasm of prostate; E55.9 Vitamin D deficiency, unspecified | CPT/HCPCS: 80053; 80061; 82306; 82607; 83036; 83721; 84439; 84443; 84550; 85025; G0103 ==

== ENCOUNTER → 2025-02-12 14:00 | Outpatient (BNVA) | payer OTHER, SELFPAY | PROVIDERS: PCP Family Medicine; Visit Provider Family Medicine | DX: R79.89 Other specified abnormal findings of blood chemistry (principal); E11.8 Type 2 diabetes mellitus with unspecified complications; E11.65 Type 2 diabetes mellitus with hyperglycemia; I10 Essential (primary) hypertension; E55.9 Vitamin D deficiency, unspecified | CPT/HCPCS: 80053; 82306; 82607; 83036 ==